=== PATIENT | male | born 1950 | race Caucasian/White ===

== ENCOUNTER 2018-12-07 12:44 | Observation (INO) | payer MEDICARE, OTHER, SELFPAY ==
[2018-12-07] VITALS (9 sets, daily range): BP systolic 120–150; BP diastolic 81–103; PULSE 66–87; RESP 12–17; TEMP 36.7–37.1; O2SAT 92–97; BMI 30.8
--- NOTE | 2018-12-07 | DI.ECHO.S_ITS ---
[facility]---------+ [facility] +---------+ : : [address] : : : : [id number] : : : : Phone: [phone]+ Echocardiogram Report + + :Name: CARINA ESQUIVEL Study Date: 12/08/2018 Height: 67 in : :[facility] Weight: 197 lb : : Gender: Male BSA: 2.0 m2 : :: 1950 Age: 68 yrs BP: 149/91 mmHg: :Reason For Study: CVA : :Ordering Physician: Fely : :Hospitalist Performed By: Brittany Hernandez : :Referring: Peterson LARES E : + + Interpretation Summary The left ventricle is grossly normal size. Left ventricular systolic function is normal. The ejection fraction is estimated to be 60-65%. There are no obvious focal wall motion abnormalities noted but poor endocardial definition reduces the sensitivity for the detection of such. Diastolic parameters suggest a relaxation abnormality of the left ventricle, consistent with probable normal filling pressures. The right ventricle grossly appears normal in size with probable normal systolic function. Pulmonary artery pressures cannot be estimated because of the lack of a measurable TR jet velocity. Both atria are normal in size. There is mild aortic regurgitation. There is no other significant valvular heart disease. The aortic root is borderline dilated. The ascending aorta is mildly enlarged. No obvious source for CVA. Procedure: A two-dimensional transthoracic echocardiogram with color flow and Doppler was performed. The study quality was technically adequate. The patient had an echocardiogram, but there is no comparison study available. The patient reports prior echocardiogram's were performed at the [facility]. 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 The parasternal images were difficult to obtain and suboptimal in quality due to patient body habitus and pectus excavatum. The patient was in normal sinus rhythm during the exam. Left Ventricle: The left ventricle is grossly normal size. Left ventricular systolic function is normal. The ejection fraction is estimated to be 60-65%. There are no obvious focal wall motion abnormalities noted but poor endocardial definition reduces the sensitivity for the detection of such. Diastolic parameters suggest a relaxation abnormality of the left ventricle, consistent with probable normal filling pressures. Right Ventricle: The right ventricle grossly appears normal in size with probable normal systolic function. Atria: Both atria are normal in size. Mitral Valve: The mitral valve is normal in structure and function. There is trace mitral regurgitation. Aortic Valve: The aortic valve is trileaflet. The aortic valve opens well. There is mild aortic regurgitation. Tricuspid Valve: The tricuspid valve is normal in structure and function. There is a trace or physiologic amount of tricuspid regurgitation. Pulmonary artery pressures cannot be estimated because of the lack of a measurable TR jet velocity. Pulmonic Valve: The pulmonic valve is not well visualized. There is a trace or physiologic amount of pulmonic regurgitation. There is no other significant valvular heart disease. Great Vessels: The aortic root is borderline dilated. The ascending aorta is mildly enlarged. The aortic arch is at the upper limits of normal in size. The IVC is of normal diameter and collapses greater than 50% with a sniff. This suggests a low right atrial pressure of 3 mm Hg. Pericardium/ Pleura There is no pericardial effusion. There is an anterior echo-free space consistent with a fat pad. There is no pleural effusion. MMode/2D Measurements & Calculations LVOT diam: 2.2 cm LA A2 area: 16.7 cm2 Ao root diam: 4.1 cm LA A4 area: 18.5 cm2 asc Aorta Diam: 3.9 cm LA length (vol): 4.9 cm Ao Arch Diam (Prox Trans): 3.2 cm LA vol: 53.5 ml LA vol index: 26.6 ml/m2 RA long axis: 4.8 cm TAPSE: 2.3 cm RA area: 17.5 cm2 RA vol: 54.0 ml RA : 26.9 ml/m2 Doppler Measurements & Calculations Ao V2 max: 100.7 cm/sec LVOT Max Jose: 73.1 cm/sec Ao V2 mean: 70.4 cm/sec LV V1 max P.1 mmHg Ao max P.1 mmHg LV V1 VTI: 14.8 cm Ao mean P.2 mmHg JOSE(I,D): 3.1 cm2 Ao V2 VTI: 18.7 cm JOSE(V,D): 2.8 cm2 sev ratio: 0.79 JOSE indexed to BSA (cm^2/m^2): 1.5 MV E max jose: 33.4 cm/sec PA V2 max: 62.5 cm/sec MV A max jose: 64.1 cm/sec PA V2 mean: 41.7 cm/sec MV E/A: 0.52 PA mean P.78 mmHg Med Peak E' Jose: 7.8 cm/sec PA pr(Accel): 17.4 mmHg E/E' med: 4.3 Lat Peak E' Jose: 15.8 cm/sec E/E' lat: 2.1 E/e' average: 3.2 MV dec time: 0.26 sec SV(LVOT): 57.6 ml Reading Physician:02:32 PM
--- NOTE | 2018-12-07 13:01 | DI.CT.S_ITS ---
PROCEDURE: CT HEAD/BRAIN WO CON INDICATIONS: on and off right facial droop, slurred speech, word searchin TECHNIQUE: Noncontrast 4.5 mm thick angled axial sections acquired from the foramen magnum to the vertex, with coronal and sagittal reformats. For radiation dose reduction, the following was used: automated exposure control, adjustment of mA and/or kV according to patient size. COMPARISON: None. FINDINGS: Image quality: Excellent. CSF spaces: Basal cisterns are patent. No extra-axial fluid collections. The ventricles are symmetric in size and shape. Brain: No intracranial bleeds or masses. There is moderate cerebral volume loss for age, with resultant ventricular and sulcal prominence. There are moderate periventricular and deep white matter chronic small vessel ischemic changes. A hyperdense focus is present within the right lentiform nucleus (series 2, image 14). There is intracranial internal carotid artery atherosclerosis. Skull and face: Calvarium and visualized facial bones appear intact, without suspicious lesions. Sinuses: Visualized sinuses and mastoids are clear. IMPRESSION: 1. Hypodense focus within the right lentiform nucleus which may be associated with late subacute or early chronic infarct. This finding was discussed with Dr. Greer at 1:31 PM on 12/07/18. 2. No other acute intracranial findings. 3. Findings likely associated with chronic microvascular ischemic changes. Dictated by: Kate Dyer M.D. on 12/07/2018 at 13:27 Approved by: Kate Dyer M.D. on 12/07/2018 at 13:31
--- NOTE | 2018-12-07 13:01 | DI.RAD.S_ITS ---
PROCEDURE: XR CHEST 1V INDICATIONS: chest pain TECHNIQUE: One view of the chest was acquired. COMPARISON: None. FINDINGS: Surgical changes and devices: None. Lungs and pleura: Lungs are clear. No pleural effusions or pneumothorax. Mediastinum: Mediastinal contours appear normal. Heart size is normal. Bones and chest wall: No suspicious bony lesions. Overlying soft tissues appear unremarkable. IMPRESSION: No acute cardiopulmonary findings. Dictated by: Kate Dyer M.D. on 12/07/2018 at 13:31 Approved by: Kate Dyer M.D. on 12/07/2018 at 13:32
--- NOTE | 2018-12-07 13:06 | ED.NEUROSD ---
HPI - Neuro Symptoms/Deficit General Chief Complaint: Neuro Symptoms/Deficit Stated Complaint: SLURRED SPEECH Time Seen by Provider: 12/07/18 13:03 Source: patient Mode of arrival: ambulatory Limitations: no limitations History of Present Illness HPI Narrative: The patient had onset of an episode today at 11:30 or he demonstrated right facial droop and dysarthria. His thinks his speech has been hot all day. He had an episode 2 days ago where he briefly had slurred speech. His symptoms have resolved. He has no confusion, slurred speech, weakness or numbness. He has no prior history of CVA or TIA. He has no cardiac history. He is anticoagulated with Coumadin. He has prior history of right DVT, and had a PE 2 years ago after a trip to [place]. He is on medications for hypertension. He has no diabetes, he is a nonsmoker. He denies recent illness. He has had no fever, chills or cough. He denies chest pain or palpitations. On Anticoagulants: Yes (coumadin) Related Data Home Medications Medication Instructions Recorded Confirmed losartan See Rx Instructions .ROUTE .COMPLEX 12/07/18 12/07/18 warfarin See Rx Instructions .ROUTE .COMPLEX 12/07/18 12/07/18 Allergies Allergy/AdvReac Type Severity Reaction Status Date / Time doxycycline Allergy Intermediate Photosensit Verified 12/07/18 12:51 ivity Review of Systems Constitutional Denies chills, Denies fever(s), Denies lethargy and Denies weakness Eyes Denies change in vision and Denies loss of vision ENT Ears, Nose, Mouth, and Throat: Denies change in voice, Denies vertigo, Denies dizziness, Denies neck pain, Denies sore throat and Reports other (No difficulty swallowing) Cardiovascular Denies chest pain, Denies irregular heart rhythm, Denies lightheadedness, Denies palpitations, Denies dyspnea and Denies orthopnea Respiratory Denies cough, Denies dyspnea and Denies wheezing Gastrointestinal Gastrointestinal: Denies abdominal pain, Denies change in bowel habits, Denies diarrhea, Denies nausea and Denies vomiting Musculoskeletal Denies back pain and Denies neck pain Integumentary/Breasts Denies rash Neurologic Denies confusion, Denies vertigo, Denies dizziness, Denies loss of vision and Denies weakness Psychiatric Denies anxiety and Denies confusion Endocrine Denies palpitations Hematologic/Lymphatic Reports easy bleeding Allergic/Immunologic Denies wheezing PFSH Medical History DVT (deep venous thrombosis) (Acute) Channing-Danlos syndrome (Acute) Hypertension (Acute) Pulmonary embolism (Acute) Surgical History No pertinent past surgical history (Acute) Social History Smoking Status: Never smoker Social History Smoking Status: Never smoker Exam Initial Vital Signs Initial Vital Signs: Vital Signs Temperature 98.7 F 12/07/18 12:48 Pulse Rate 87 12/07/18 12:48 Respiratory Rate 14 12/07/18 12:48 Blood Pressure 146/103 H 12/07/18 12:48 Pulse Oximetry 96 12/07/18 12:48 Const General: cooperative and well developed Nutritional Appearance: well nourished Orientation: alert, awake, oriented x3 and not confused HENMT Mouth: oral mucosae normal Throat: posterior oropharynx normal, tonsils normal and uvula midline Eyes General: appearance normal, both eyes and all related structures Eyelids: eyelids normal Conjunctivae: conjunctivae normal Sclera: sclerae normal Pupils: PERRL EOM: EOM intact bilaterally Neck Neck: normal visual inspection, trachea midline, No lymphadenopathy, No midline deformity and No JVD Thyroid: nontender Lymphatic: No lymphedema Chest Chest: normal inspection of the chest Resp Effort & Inspection: normal respiratory effort and able to speak in complete sentences Auscultation: clear to auscultation bilaterally, no rales, no rhonchi and no wheezes Cardio Rate: regular rate Rhythm: regular rhythm Heart Sounds: no click, no gallops, no murmurs and no rubs Pulses: normal peripheral pulses GI Inspection: non-distended Palpation: soft, no hepatosplenomegaly, No guarding, No pulsatile mass and No tender Auscultation: normal bowel sounds Back/Spine/Pelvis Back: No CVA tenderness Cervical Spine: cervical ROM normal Thoracic/Lumbar Spine: thoracic and lumbar spine normal to inspection Skin General: no rashes or lesions noted and No petechiae Neuro General: alert, oriented x3, gait normal and no focal motor deficits Speech: speech normal Motor: muscle tone normal throughout Sensory Exam: no sensory deficits noted Scores NIH Stroke Scale Level of Conciousness: Alert, keenly responsive Ask month/age: Answers both questions correctly. Open/close eyes, close hand: Performs both tasks correctly Best gaze horizontal: Normal Visual rebollar: No visual loss Facial palsy: Normal symetrical movement Left arm drift: No drift for full 10 sec Right arm drift: No drift for full 10 sec Left leg drift: No drift for full 10 sec Right leg drift: No drift for full 10 sec Limb ataxia: Absent Sensory on face/arms/legs: Normal, no sensory loss Best language: No aphasia, normal Dysarthria: Normal Extinction or inattention: No abnormality Total NIH Stroke scale score: 0 Course Orders Ordered: ED Orders 12/07/18 13:01 CT head/brain wo con Stat XR chest 1V Stat Partial Thromboplastin Time Stat Prothrombin Time INR Stat EKG-12 Lead Stat 12/07/18 13:35 MR stroke Stat 12/07/18 17:02 Education, smoking cessation ONGOING Losartan Potassium (Cozaar) 100 mg PO DAILY [facility] Warfarin Sodium (Coumadin) 2.5 mg PO TuThSa@1700 [facility] Vital Signs - 8 hr 12/07/18 12:48 12/07/18 14:14 12/07/18 16:19 Temperature 98.7 F Pulse Rate 87 70 70 Respiratory Rate 14 17 12 Blood Pressure 146/103 H Blood Pressure [Right Arm] 150/85 H 132/94 H Pulse Oximetry 96 92 93 MDM - Neuro Symptoms/Deficit Lab Data Result diagrams: 12/07/18 Unknown 12/07/18 Unknown Lab Results 12/07/18 12/07/18 12/07/18 Range/Units 13:01 Unknown Unknown WBC 5.3 (4.5-11.0) X10^3/uL RBC 5.14 (4.5-5.9) X10^6/uL Hgb 16.0 (13.5-17.5) g/dL Hct 46.9 (41-53) % MCV 91.3 (80-100) fL MCH 31.2 (26-34) PG MCHC 34.2 (30-36) % RDW 14.2 (11.6-14.8) % Plt Count 194 (150-400) X10^3/uL Neut % (Auto) 53.7 (50-75) % Lymph % (Auto) 29.3 (25-40) % [place] % (Auto) 11.7 (3-14) % Eos % (Auto) 4.6 H (2-4) % Baso % (Auto) 0.7 (0-2) % Neut # (Auto) 2800 (4058-9237) /uL Lymph # (Auto) 1600 (4078-5596) /uL [place] # (Auto) 600 (0-900) /uL Eos # (Auto) 200 (0-450) /uL Baso # (Auto) 0 (0-100) /uL PT 28.7 H (10.1-12.7) SECONDS INR 2.5 H (0.9-1.3) APTT 45 H (26.4-36.2) SECONDS Sodium 138 (137-145) mmol/L Potassium 4.8 (3.4-5.1) mmol/L Chloride 104 (98-107) mmol/L Carbon Dioxide 23 (22-32) mmol/L BUN 23 H (9-20) mg/dL Creatinine 0.80 (0.66-1.25) mg/dL Estimated GFR > 60.0 (>60) mL/min BUN/Creatinine Ratio 28.8 H (6-22) Glucose 101 (80-110) mg/dL Calcium 9.1 (8.4-10.2) mg/dL Total Bilirubin 0.8 (0.2-1.3) mg/dL AST 40 (17-59) IU/L ALT 37 (21-72) IU/L Alkaline Phosphatase 56 (38-126) U/L Total Creatine Kinase 101 (55-170) U/L CK-MB (CK-2) 1.69 (<2.37) ng/mL CK-MB (CK-2) Rel Index 1.7 (1.5-5.0) % Troponin I < 0.012 (0.01-0.034) ng/mL Total Protein 8.1 (6.3-8.2) g/dL Albumin 4.4 (3.5-5.0) g/dL Globulin 3.7 (1.7-4.1) g/dL Albumin/Globulin Ratio 1.2 (1.0-2.8) Lipase 53 (23-300) U/L Imaging Data CT scan - head: Radiologist's impression: [address] [address] [address] Scan Report Signed Patient: CARINA SULLIVAN [facility]#: [id number] : 8Acct:[id number] Age/Sex: 68 / MDate of Service: 12/07/18 Loc: ED Accession Number: [id number] Procedure: CT head/brain wo con Ordering Provider: Faye Neely P.A-C PROCEDURE: CT HEAD/BRAIN WO CON INDICATIONS: on and off right facial droop, slurred speech, word searchin TECHNIQUE: Noncontrast 4.5 mm thick angled axial sections acquired from the foramen magnum to the vertex, with coronal and sagittal reformats. For radiation dose reduction, the following was used: automated exposure control, adjustment of mA and/or kV according to patient size. COMPARISON: None. FINDINGS: Image quality: Excellent. CSF spaces: Basal cisterns are patent. No extra-axial fluid collections. The ventricles are symmetric in size and shape. Brain: No intracranial bleeds or masses. There is moderate cerebral volume loss for age, with resultant ventricular and sulcal prominence. There are moderate periventricular and deep white matter chronic small vessel ischemic changes. A hyperdense focus is present within the right lentiform nucleus (series 2, image 14). There is intracranial internal carotid artery atherosclerosis. Skull and face: Calvarium and visualized facial bones appear intact, without suspicious lesions. Sinuses: Visualized sinuses and mastoids are clear. IMPRESSION: 1. Hypodense focus within the right lentiform nucleus which may be associated with late subacute or early chronic infarct. This finding was discussed with Dr. Greer at 1:31 PM on 12/07/18. 2. No other acute intracranial findings. 3. Findings likely associated with chronic microvascular ischemic changes. Dictated by: Kate Dyer M.D. on 12/07/2018 at 13:27 Approved by: Kate Dyer M.D. on 12/07/2018 at 13:31 Chest x-ray: Radiologist's impression: [address] [address] XRay Report Signed Patient: CARINA SULLIVAN [facility]#: [id number] : 8Acct:[id number] Age/Sex: 68 / MDate of Service: 12/07/18 Loc: ED Accession Number: [id number] Procedure: XR chest 1V Ordering Provider: Humberto Greer M.D. PROCEDURE: XR CHEST 1V INDICATIONS: chest pain TECHNIQUE: One view of the chest was acquired. COMPARISON: None. FINDINGS: Surgical changes and devices: None. Lungs and pleura: Lungs are clear. No pleural effusions or pneumothorax. Mediastinum: Mediastinal contours appear normal. Heart size is normal. Bones and chest wall: No suspicious bony lesions. Overlying soft tissues appear unremarkable. IMPRESSION: No acute cardiopulmonary findings. Dictated by: Kate Dyer M.D. on 12/07/2018 at 13:31 Approved by: Kate Dyer M.D. on 12/07/2018 at 13:32 MRI - head: Radiologist's impression: [place] [address] Magnetic Resonance Report Signed Patient: Carina Sullivan [facility]#: [id number] : 8Acct:[id number] Age/Sex: 68 / MDate of Service: 12/07/18 Loc: ED Accession Number: [id number] Procedure: MR stroke Ordering Provider: Humberto Greer M.D. PROCEDURE: MR STROKE Pre- and post-contrast brain MRI, non-contrast brain MR angiogram, pre- and postcontrast neck MR angiogram INDICATIONS: TIA. TECHNIQUE: Brain: Noncontrast axial T1 spin echo, axial T2 fast spin echo, sagittal and axial FLAIR, coronal T2 fast spin echo, axial gradient echo, axial diffusion and ADC through the brain. After the administration of contrast, axial 3D VIBE of the cranial vasculature and brain. Brain MRA: Non-contrast 3-D time of flight MR angiogram, with multiple vvecvpz-gbnhyywew-kwoaagckjd (MIP) reformats performed. Neck MRA: Axial and sagittal TruFISP through the neck. Coronal dynamic MR angiogram during administration of contrast in the arterial and venous phases, with 3-dimenstional scsdvlw-xnzuqhsbl-kbhyzvaoan (MIP) reformats constructed from subtraction images. COMPARISON: None. FINDINGS: Image quality: Excellent. BRAIN: CSF spaces: Ventricles are normal in size and shape. Basal cisterns are patent. No extra-axial fluid collections. Brain: No intracranial bleeds or mass effects. Fonseca-white matter interface is normal. Diffusion weighted images show no acute ischemic insults. T2 hyperintense focus is present within the posterior right lentiform nucleus which likely corresponds with the hypodense region on the comparison CT from earlier today this region may represent an early chronic infarct. Brainstem appears normal. Normal intravascular flow voids are present. No abnormal intracranial enhancement. Skull and face: Calvarial marrow signal is normal. Orbits appear normal. Sinuses: Sinuses and mastoids are clear. BRAIN MR ANGIOGRAM: Anterior circulation: Mild bilateral stenosis is present within the cavernous portions of the bilateral internal carotid arteries. Intracranial internal carotid arteries are otherwise normal in size and enhancement. The flow within the paired anterior cerebral arteries is normal and symmetric. The flow within the middle cerebral arteries is normal and symmetric. The anterior communicating artery is seen. No stenoses, occlusions, or aneurysms. Posterior circulation: The visualized portions of the vertebral arteries demonstrate normal caliber, and join to form a normal appearing basilar artery. The flow within the posterior cerebral arteries is normal and symmetric. No stenoses, occlusions, or aneurysms. NECK MR ANGIOGRAM: Carotids: Great vessels demonstrate a conventional anatomy as they arise from the aortic arch. The origins of the common carotid arteries are poorly characterized. The calibers and courses of both common carotid arteries are normal. The bifurcation regions appear normal bilaterally. The internal carotid arteries demonstrate normal course and caliber. Posterior circulation: The origins of the vertebral arteries are poorly characterized. More superior portions of both vertebral arteries demonstrate normal course and caliber, and join to form a normal appearing basilar artery. Miscellaneous: Subclavian arteries appear patent. Pre-contrast images through the neck show no soft tissue abnormalities. IMPRESSION: BRAIN MRI: 1. No acute intracranial findings. Specifically, no increased restricted diffusion to suggest acute or subacute infarct. 2. Probable early chronic infarct within the right basal ganglia as above. 3. Mild findings likely associated with chronic microvascular ischemic change. BRAIN MR ANGIOGRAM: 1. Mild stenosis of the cavernous portions of the bilateral internal carotid arteries. No other stenosis, occlusion, or aneurysm. NECK MR ANGIOGRAM: 1. Poor characterization of the origin of the carotid arteries and vertebral arteries. No other findings to suggest stenosis, occlusion, or aneurysm of the carotid or vertebral arteries. Dictated by: Kate Dyer M.D. on 12/07/2018 at 15:54 Approved by: Kate Dyer M.D. on 12/07/2018 at 16:07 ECG Data Attestation: I personally reviewed and interpreted this ECG as follows: (Normal sinus rhythm rate 75 bpm. RBBB. LAFB. Anterior Q-waves. No acute ST T wave changes. No ectopy.) [facility] Narrative Medical decision making narrative: The patient was asymptomatic upon arrival, but presented with concerns suggesting TIA versus CVA. He is anticoagulated due to a PE. He has no history of CAD or arrhythmia. He is in normal sinus rhythm. Vitals stable are normal and he is alert orient. The initial head CT was suggestive of a CVA. An MRI was arranged. The MRI reveals areas of atherosclerosis, and again, evidence of a CVA but of undetermined age. The patient has been asymptomatic since I first examined him. He is normotensive, and is in normal sinus rhythm without ectopy or arrhythmia. I have discussed his presentation with the hospitalist, Dr. Sotelo. He will be admitted to Dr. Sotelo. Discharge Plan Departure Patient Disposition: Admitted as Observation Clinical Impression: Cerebrovascular accident Qualifiers: CVA mechanism: unspecified Qualified Code(s): I63.9 - Cerebral infarction, unspecified
[2018-12-07 13:14] LABS: Add Manual Diff / Slide Review NO; Basophils Absolute Auto 0 /uL (0-100); Basophils Percent Auto 0.7 % (0-2); Eosinophils Absolute Auto 200 /uL (0-450); Eosinophils Percent Auto 4.6 % (2-4); Hematocrit 46.9 % (41-53); Lymphocytes Absolute Auto 1600 /uL (1100-4500); Lymphocytes Percent Auto 29.3 % (25-40); Mean Corpuscular HGB Conc 34.2 % (30-36); Mean Corpuscular Hemoglobin 31.2 PG (26-34); Mean Corpuscular Volume 91.3 fL (80-100); Monocytes Absolute Auto 600 /uL (0-900); Monocytes Percent Auto 11.7 % (3-14); Neutrophils Absolute Auto 2800 /uL (1500-7000); Neutrophils Percent Auto 53.7 % (50-75); Platelet Count 194 X10^3/uL (150-400); Red Blood Cell Count 5.14 X10^6/uL (4.5-5.9); Red Cell Distribution Width 14.2 % (11.6-14.8); White Blood Cell Count 5.3 X10^3/uL (4.5-11.0)
[2018-12-07 13:27] LABS: Alanine Aminotransferase 37 IU/L (21-72); Albumin 4.4 g/dL (3.5-5.0); Albumin Globulin Ratio 1.2 (1.0-2.8); Alkaline Phosphatase 56 U/L (38-126); Aspartate Aminotransferase 40 IU/L (17-59); BUN Creatinine Ratio 28.8 (6-22); Bilirubin Total 0.8 mg/dL (0.2-1.3); Blood Urea Nitrogen 23 mg/dL (9-20); Calcium 9.1 mg/dL (8.4-10.2); Carbon Dioxide 23 mmol/L (22-32); Chloride 104 mmol/L (98-107); Creatine Kinase 101 U/L (55-170); Estimated Glomerular Filt Rate > 60.0 mL/min (>60); Globulin 3.7 g/dL (1.7-4.1); Glucose 101 mg/dL (80-110); Lipase 53 U/L (23-300); Potassium 4.8 mmol/L (3.4-5.1); Sodium 138 mmol/L (137-145); Total Protein 8.1 g/dL (6.3-8.2)
--- NOTE | 2018-12-07 13:35 | DI.MRI.S_ITS ---
PROCEDURE: MR STROKE Pre- and post-contrast brain MRI, non-contrast brain MR angiogram, pre- and postcontrast neck MR angiogram INDICATIONS: TIA. TECHNIQUE: Brain: Noncontrast axial T1 spin echo, axial T2 fast spin echo, sagittal and axial FLAIR, coronal T2 fast spin echo, axial gradient echo, axial diffusion and ADC through the brain. After the administration of contrast, axial 3D VIBE of the cranial vasculature and brain. Brain MRA: Non-contrast 3-D time of flight MR angiogram, with multiple ekpbpwm-gttrmssnp-wsjofshodd (MIP) reformats performed. Neck MRA: Axial and sagittal TruFISP through the neck. Coronal dynamic MR angiogram during administration of contrast in the arterial and venous phases, with 3-dimenstional twbalmf-siobstzla-guqpyfjzlb (MIP) reformats constructed from subtraction images. COMPARISON: None. FINDINGS: Image quality: Excellent. BRAIN: CSF spaces: Ventricles are normal in size and shape. Basal cisterns are patent. No extra-axial fluid collections. Brain: No intracranial bleeds or mass effects. Fonseca-white matter interface is normal. Diffusion weighted images show no acute ischemic insults. T2 hyperintense focus is present within the posterior right lentiform nucleus which likely corresponds with the hypodense region on the comparison CT from earlier today this region may represent an early chronic infarct. Brainstem appears normal. Normal intravascular flow voids are present. No abnormal intracranial enhancement. Skull and face: Calvarial marrow signal is normal. Orbits appear normal. Sinuses: Sinuses and mastoids are clear. BRAIN MR ANGIOGRAM: Anterior circulation: Mild bilateral stenosis is present within the cavernous portions of the bilateral internal carotid arteries. Intracranial internal carotid arteries are otherwise normal in size and enhancement. The flow within the paired anterior cerebral arteries is normal and symmetric. The flow within the middle cerebral arteries is normal and symmetric. The anterior communicating artery is seen. No stenoses, occlusions, or aneurysms. Posterior circulation: The visualized portions of the vertebral arteries demonstrate normal caliber, and join to form a normal appearing basilar artery. The flow within the posterior cerebral arteries is normal and symmetric. No stenoses, occlusions, or aneurysms. NECK MR ANGIOGRAM: Carotids: Great vessels demonstrate a conventional anatomy as they arise from the aortic arch. The origins of the common carotid arteries are poorly characterized. The calibers and courses of both common carotid arteries are normal. The bifurcation regions appear normal bilaterally. The internal carotid arteries demonstrate normal course and caliber. Posterior circulation: The origins of the vertebral arteries are poorly characterized. More superior portions of both vertebral arteries demonstrate normal course and caliber, and join to form a normal appearing basilar artery. Miscellaneous: Subclavian arteries appear patent. Pre-contrast images through the neck show no soft tissue abnormalities. IMPRESSION: BRAIN MRI: 1. No acute intracranial findings. Specifically, no increased restricted diffusion to suggest acute or subacute infarct. 2. Probable early chronic infarct within the right basal ganglia as above. 3. Mild findings likely associated with chronic microvascular ischemic change. BRAIN MR ANGIOGRAM: 1. Mild stenosis of the cavernous portions of the bilateral internal carotid arteries. No other stenosis, occlusion, or aneurysm. NECK MR ANGIOGRAM: 1. Poor characterization of the origin of the carotid arteries and vertebral arteries. No other findings to suggest stenosis, occlusion, or aneurysm of the carotid or vertebral arteries. Dictated by: Kate Dyer M.D. on 12/07/2018 at 15:54 Approved by: Kate Dyer M.D. on 12/07/2018 at 16:07
[2018-12-07 13:38] LABS: Troponin I < 0.012 ng/mL (0.01-0.034)
[2018-12-07 13:42] LABS: CKMB % Relative Index 1.7 % (1.5-5.0); Creatine Kinase MB 1.69 ng/mL (<2.37)
[2018-12-07 13:46] LABS: HEMOLYSIS 81 (0-50)
--- NOTE | 2018-12-07 14:49 | PC.NURSE ---
taken to MRI
[2018-12-07 16:22] LABS: INR 2.5 (0.9-1.3); Prothrombin Time 28.7 SECONDS (10.1-12.7)
[2018-12-07 16:23] LABS: PTT Partial Thromboplastin Tim 45 SECONDS (26.4-36.2)
--- NOTE | 2018-12-07 17:06 | PM.HP.1 ---
History of Present Illness Date Patient Seen: 12/07/18 Time Patient Seen: 17:41 Chief complaint: SLURRED SPEECH Narrative: This is a 68-year-old male presenting with a stuttering onset of facial drooping and dysarthria. For the last couple of days he has experienced the symptoms. They became more intense over the previous 2 hr and so his insisted on him coming to the emergency department. When he arrived the symptoms had completely resolved and have not returned. He described a right-sided facial droop and difficulty talking both of which were mild. The 1st occurred 2 days ago. He has never had a stroke before but he does have a history of hypertension. There is no family history of stroke. 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 He appears to have a right basal ganglia infarct. He is quite irritated to have to stay in the hospital for ongoing telemetry and echocardiogram checks but his is able to persuade him. There is no history of diabetes or coronary artery disease. He does not take cholesterol lowering medicine. 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 Dr. Geronimo is his PCP Dr. John at is his rug drying machine operator Dr. Molina at [place] is his Vascular specialist Safety & Behavioral: Feels Safe in Current Yes Environment Been Physically Hurt or No Threatened By a Person Tobacco & Substance use: Smoking Status Never smoker alcohol intake frequency 0-2 drinks per day Substance Use Type does not use Meds Home Medications Medication Instructions Recorded Confirmed Type losartan See Rx Instructions .ROUTE .COMPLEX 12/07/18 12/07/18 History warfarin See Rx Instructions .ROUTE .COMPLEX 12/07/18 12/07/18 History Allergies Allergy/AdvReac Type Severity Reaction Status Date / Time doxycycline Allergy Intermediate Photosensit Verified 12/07/18 12:51 ivity Review of Systems Review of Systems Positive for mild dysarthria and facial drooping beginning 2 days ago. Negative for chest pain, nausea, vomiting, coughing, fevers, chills, sweats, seizures, headaches, bleeding, abdominal pain, rashes, joint pain, dysuria, trouble walking, new allergies. All systems reviewed & are unremarkable except as noted in HPI and below Exam Vital Signs (past 8 hours): - 12/07/18 12:48 12/07/18 14:14 12/07/18 16:19 Temperature 98.7 F Pulse Rate 87 70 70 Respiratory Rate 14 17 12 Blood Pressure 146/103 H Blood Pressure [Right Arm] 150/85 H 132/94 H Pulse Oximetry 96 92 93 Oxygen Delivery Method Room Air Narrative Exam Narrative: He is alert and oriented x3. He is in mild distress, disturbed by not being able to go home and resume his usual activities. He finds the hospital boring. There are no acute neurological abnormalities at this time. Pupils are equally round and reactive to light and accommodation. Extraocular muscles are intact. Sclerae are pink and not icteric. Throat looks normal. There is a healing bite francia on the right anterior tongue. No lymph nodes are felt head, neck, supraclavicular area. There is no thyromegaly. JVD is less than 6 cm. No carotid bruits are heard. Heart is regular rate and rhythm without murmur. Lungs are clear to auscultation bilaterally. Abdomen is soft, bowel sounds are positive, nontender, no organomegaly. Extremities have no ankle edema. Skin has no rash or jaundice. Neuro exam. Cranial nerves 2-12 tested intact. Motor function is 5/5 throughout. There is no tremor. DTRs are normal. Sensation is intact. Finger-nos pointing is normal. There is no facial droop or tongue deviation. His speech is clear. There is no lateralizing deficit. Objective Labs Result Diagrams: 12/07/18 Unknown 12/07/18 Unknown Labs: Laboratory Results - last 24 hr 12/07/18 12/07/18 12/07/18 13:01 Unknown Unknown WBC 5.3 RBC 5.14 Hgb 16.0 Hct 46.9 MCV 91.3 MCH 31.2 MCHC 34.2 RDW 14.2 Plt Count 194 Neut % (Auto) 53.7 Lymph % (Auto) 29.3 Garza % (Auto) 11.7 Eos % (Auto) 4.6 H Baso % (Auto) 0.7 Neut # (Auto) 2800 Lymph # (Auto) 1600 Garza # (Auto) 600 Eos # (Auto) 200 Baso # (Auto) 0 PT 28.7 H INR 2.5 H APTT 45 H Sodium 138 Potassium 4.8 Chloride 104 Carbon Dioxide 23 BUN 23 H Creatinine 0.80 Estimated GFR > 60.0 BUN/Creatinine Ratio 28.8 H Glucose 101 Calcium 9.1 Total Bilirubin 0.8 AST 40 ALT 37 Alkaline Phosphatase 56 Total Creatine Kinase 101 CK-MB (CK-2) 1.69 CK-MB (CK-2) Rel Index 1.7 Troponin I < 0.012 Total Protein 8.1 Albumin 4.4 Globulin 3.7 Albumin/Globulin Ratio 1.2 Lipase 53 Assessment & Plan Assessment & Plan narrative: 1 - acute right basal ganglia CVA -Echocardiogram and Telemetry ordered -Lipids ordered -MRI shows this acute CVA -Consider adding Aspirin/Plavix to his Coumadin therapy -consider PT/OT/ST if symptoms change 2 - hypertension -Continue Losartan -add Beta al if indicated. 3 - history of pulmonary embolus -Continue Coumadin -INR 2.5 today 4 - Channing Danlos -Echocardiogram ordered.
--- NOTE | 2018-12-07 17:13 | P.HP_ITS ---
History of Present Illness Date Patient Seen: 12/07/18 Time Patient Seen: 17:41 Chief complaint: SLURRED SPEECH Narrative: This is a 68-year-old male presenting with a stuttering onset of fac ial drooping and dysarthria. For the last couple of days he has experienced the symptoms. They became more intense over the previous 2 hr and so his insisted on him coming to the emergency department. When he arrived the symptoms had completely resolved and have not returned. He described a right- sided facial droop and difficulty talking both of which were mild. The 1st occurred 2 days ago. He has never had a stroke before but he does have a history of hypertension. There is no family history of stroke. 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 He appears to have a right basal ganglia infarct. He is quite irritated to have to stay in the hospital for ongoing telemetry and echocardiogram checks but his is able to persuade him. There is no history of diabetes or coronary artery disease. He does not take cholesterol lowering medicine. 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 Dr. Geronimo is his PCP Dr. John at is his extruding press operator Dr. Molina at [place] is his Vascular specialist Safety & Behavioral: Feels Safe in Current Yes Environment Been Physically Hurt or No Threatened By a Person Tobacco & Substance use: Smoking Status Never smoker alcohol intake frequency 0-2 drinks per day Substance Use Type does not use Meds Home Medications Medication Instructions Recorded Confirmed Type losartan See Rx Instructions .ROUTE .COMPLEX 12/07/18 12/07/18 History warfarin See Rx Instructions .ROUTE .COMPLEX 12/07/18 12/07/18 History Allergies Allergy/AdvReac Type Severity Reaction Status Date / Time doxycycline Allergy Intermediate Photosensit Verified 12/07/18 12:51 ivity Review of Systems Review of Systems Positive for mild dysarthria and facial drooping beginning 2 days ago. Negative for chest pain, nausea, vomiting, coughing, fevers, chills, sweats, seizures, headaches, bleeding, abdominal pain, rashes, joint pain, dysuria, trouble walking, new allergies. All systems reviewed & are unremarkable except as noted in HPI and below Exam Vital Signs (past 8 hours): - 12/07/18 12:48 12/07/18 14:14 12/07/18 16:19 Temperature 98.7 F Pulse Rate 87 70 70 Respiratory Rate 14 17 12 Blood Pressure 146/103 H Blood Pressure [Right Arm] 150/85 H 132/94 H Pulse Oximetry 96 92 93 Oxygen Delivery Method Room Air Narrative Exam Narrative: He is alert and oriented x3. He is in mild distress, disturbed by not being able to go home and resume his usual activities. He finds the hospital boring. There are no acute neurological abnormalities at this time. Pupils are equally round and reactive to light and accommodation. Extraocular muscles are intact. Sclerae are pink and not icteric. Throat looks normal. There is a healing bite francia on the right anterior tongue. No lymph nodes are felt head, neck, supraclavicular area. There is no thyromegaly. JVD is less than 6 cm. No carotid bruits are heard. Heart is regular rate and rhythm without murmur. Lungs are clear to auscultation bilaterally. Abdomen is soft, bowel sounds are positive, nontender, no organomegaly. Extremities have no ankle edema. Skin has no rash or jaundice. Neuro exam. Cranial nerves 2-12 tested intact. Motor function is 5/5 throughout. There is no tremor. DTRs are normal. Sensat ion is intact. Finger-nos pointing is normal. There is no facial droop or tongue deviation. His speech is clear. There is no lateralizing deficit. Objective Labs Result Diagrams: 12/07/18 Unknown 12/07/18 Unknown Labs: Laboratory Results - last 24 hr 12/07/18 12/07/18 12/07/18 13:01 Unknown Unknown WBC 5.3 RBC 5.14 Hgb 16.0 Hct 46.9 MCV 91.3 MCH 31.2 MCHC 34.2 RDW 14.2 Plt Count 194 Neut % (Auto) 53.7 Lymph % (Auto) 29.3 [place] % (Auto) 11.7 Eos % (Auto) 4.6 H Baso % (Auto) 0.7 Neut # (Auto) 2800 Lymph # (Auto) 1600 [place] # (Auto) 600 Eos # (Auto) 200 Baso # (Auto) 0 PT 28.7 H INR 2.5 H APTT 45 H Sodium 138 Potassium 4.8 Chloride 104 Carbon Dioxide 23 BUN 23 H Creatinine 0.80 Estimated GFR > 60.0 BUN/Creatinine Ratio 28.8 H Glucose 101 Calcium 9.1 Total Bilirubin 0.8 AST 40 ALT 37 Alkaline Phosphatase 56 Total Creatine Kinase 101 CK-MB (CK-2) 1.69 CK-MB (CK-2) Rel Index 1.7 Troponin I < 0.012 Total Protein 8.1 Albumin 4.4 Globulin 3.7 Albumin/Globulin Ratio 1.2 Lipase 53 Assessment & Plan Assessment & Plan narrative: 1 - acute right basal ganglia CVA -Echocardiogram and Telemetry ordered -Lipids ordered -MRI shows this acute CVA -Consider adding Aspirin/Plavix to his Coumadin therapy -consider PT/OT/ST if symptoms change 2 - hypertension -Continue Losartan -add Beta al if indicated. 3 - history of pulmonary embolus -Continue Coumadin -INR 2.5 today 4 - Channing Danlos -Echocardiogram ordered.
[2018-12-07] MEDS: WARFARIN 2.5 MG TABLET PO (19:20)
--- NOTE | 2018-12-07 19:56 | PC.NURSE ---
Admit note: John admitted to room 224 via ER [facility], able to transfer from [facility] to [facility], gait steady. NIH = zero. Ox3, oriented to room & call button system. VS stable, BP 149/91 immediately after brought into room. Tele monitoring in place, tele #9. Rhythm appears sinus on monitor. HR 70's. RA oxygen high 90's, I did hear few fine crackles to left lower lobe posteriorly which cleared after taking few deep breaths. Denies SOB, recent falls or skin issues. Coumadin given. IV is saline locked to right wrist. He sat in chair to eat meal, ambulated to , voided 450 ml clear yellow urine. I gave him PJ bottoms so he could take off his jeans. He is now in bed, watching TV. Reminded to call nurse if he has any needs.
[2018-12-08 03:55] VITALS: BP 113/71; PULSE 71; RESP 15; TEMP 36.7; O2SAT 94
[2018-12-08 05:36] LABS: Cholesterol 225 mg/dL (140-199); HDL Cholesterol 28 mg/dL (40-60); LDL Cholesterol Calculated 164 mg/dL (<100); Triglycerides 164 mg/dL (35-150)
[2018-12-08 07:30] VITALS: BP 142/81; PULSE 69; RESP 18; TEMP 36.7; O2SAT 94
[2018-12-08] MEDS: LOSARTAN 50 MG TABLET 100 MG PO (08:16)
[2018-12-08] MEDS: SODIUM CHLORIDE 0.9% FLUSH 10 ML IV (08:17)
[2018-12-08 08:53] VITALS: O2SAT 94
[2018-12-08 12:07] VITALS: BP 141/79; PULSE 70; RESP 14; TEMP 36.3; O2SAT 94
--- NOTE | 2018-12-08 14:20 | CM.DANOTE ---
Addendum entered by SENDY Bustillos 12/08/18 15:05: ADD: Per MD, Echo results back and pt stable for d/c home today with no identified barriers to discharge. BF Original Note: Patient is a 68 year old male who was admitted on 12/07/18 for Slurred Speech. Pt has [employer] and [employer] [place] for insurance and his PCP is Dr. Geronimo and his Produce Laborer is Dr. John at . EMR was reviewed. Per MD, pt's symptoms seem to have resolved and ordering an Echo prior to d/c. Pending Echo results, pt may be stable for d/c home tonight. Per RN, pt independent in room and supportive sig other bedside. Pt is independent with ADL's at baseline and pt recently retired and moved to [place]. Pt drives and is active and denies any hx of HH or SNF. Preference is to d/c home today if possible and pt has been a bit antsy to get home since symptoms have resolved. Plan: SW to follow for Echo results to determine if pt is stable for d/c home via POV later today. No SW needs at this time. 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 No Advance Directives on File No History Provided By Patient Medical Record Has Patient been admitted in last 30 No days? Prior Living Arrangements House Household Members spouse Type of transporation used prior to Drives own vehicle admit Independent with ADL's Yes Is patient alert and oriented? Yes Caregiver for Another No Comment Likely home pending Echo results Barriers to Discharge No Discharge Plan Home Transportation Arrangement Family can likely provide transport at d/c. Referrals Initiated None needed Review Status In Process Please Provide Date Initial DC 12/08/18 Assessment Was Performed Next Review Type Continued Stay Review
--- NOTE | 2018-12-08 14:33 | PC.NURSE ---
Uneventful shift. Patient states he feels completely back to baseline. Steady on feet when up sba to urinate. Echo completed. MD notified of same and that patient is eager to dc home. Results are not yet in. Calls appropriately.
--- NOTE | 2018-12-08 14:41 | PM.DS.1 ---
History of Present Illness Chief complaint: SLURRED SPEECH Narrative: This is a 68-year-old male presenting with a stuttering onset of facial drooping and dysarthria. For the last couple of days he has experienced the symptoms. They became more intense over the previous 2 hr and so his insisted on him coming to the emergency department. When he arrived the symptoms had completely resolved and have not returned. He described a right-sided facial droop and difficulty talking both of which were mild. The 1st occurred 2 days ago. He has never had a stroke before but he does have a history of hypertension. There is no family history of stroke. 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 He appears to have a right basal ganglia infarct. He is quite irritated to have to stay in the hospital for ongoing telemetry and echocardiogram checks but his is able to persuade him. There is no history of diabetes or coronary artery disease. He does not take cholesterol lowering medicine. Discharge Providers Date of admission: 12/08/18 12:05 Discharge Date: 12/08/18 Discharge provider: Peterson Sotelo MD Summary Discharge Diagnosis: 1 - Clinically Acute/Radiologically Early Chronic right basal ganglia CVA 2 - hypertension 3 - history of pulmonary embolus 4 - [facility] Course: 1 - Clinically Acute/Radiologically Early Chronic - right basal ganglia CVA -Echocardiogram today and Telemetry since yesterday are normal. -Lipid panel with a total cholesterol of 225, LDL 164. Will start on atorvastatin. -MRI shows this acute CVA although it is interpreted as being an early chronic CVA. The clinical impression (which should take precedence) is that since the symptoms have just been noted, this was acute. -Consider adding Aspirin/Plavix to his Coumadin therapy -he did not need PT or OT. His swallowing appeared to be okay. 2 - hypertension -Continue Losartan -no additional blood pressure medicines were indicated. 3 - history of pulmonary embolus -Continue Coumadin -INR 2.5 on admission 4 - [facility] -Echocardiogram showed no hint of an aortic dissection 5 - Hyperlipidemia -start atorvastatin Status at Discharge Functional status at discharge: independent ambulation Overall status at discharge: patient is back to baseline Time Spent with Patient Less than 30 minutes Exam Vital Signs (past 8 hours): - 12/08/18 07:30 12/08/18 08:53 12/08/18 12:07 Temperature 98.1 F 97.4 F L Pulse Rate 69 70 Respiratory Rate 18 14 Blood Pressure 142/81 H 141/79 H Pulse Oximetry 94 94 94 Oxygen Delivery Method Room Air Oxygen Flow Rate 0 Objective Labs Result Diagrams: 12/07/18 Unknown 12/07/18 Unknown Labs: Laboratory Results - last 24 hr 12/07/18 12/08/18 13:01 04:45 PT 28.7 H INR 2.5 H APTT 45 H Triglycerides 164 H Cholesterol 225 H LDL Cholesterol, Calc 164 H HDL Cholesterol 28 L Discharge Plan Discharge Plan Patient Disposition: Home Discharge comment: Please follow up with Dr. Geronimo soon Dr. Geronimo is his PCP Dr. John at is his hydrometer tester Dr. Molina at [place] is his Vascular specialist Discharge Med Rec/Prescriptions Prescriptions: New atorvastatin 20 mg tablet 20 mg PO BEDTIME Qty: 30 RF: 0 Continued warfarin 2.5 mg tablet See Rx Instructions .ROUTE .COMPLEX RF: 0 losartan 100 mg tablet See Rx Instructions .ROUTE .COMPLEX RF: 0 Provider Discharge Instructions Diet: Low-cholesterol Visit Report/Discharge Packet Instructions: DI for Stroke-Ischemic Discharge Data Attending Provider: Peterson Sotelo Admit Date/Time: 12/08/18 12:05 Quality VTE Deep Vein Thrombosis/Pulmonary Embolism Present on Admission: No
== END 2018-12-08 15:15 | disposition home or self-care (01) | DRG 65 ==
LOC: ED 16:57 → AC 17:14
PROVIDERS: Admitting Provider Family Medicine; Emergency Provider Emergency Medicine; Visit Provider Family Medicine
DX: I63.511 Cerebral infarction due to unspecified occlusion or stenosis of right middle cerebral artery (principal); R29.818 Other symptoms and signs involving the nervous system; Q79.6 Ehlers-Danlos syndromes; R29.810 Facial weakness; R47.81 Slurred speech; I10 Essential (primary) hypertension; Z86.711 Personal history of pulmonary embolism; Z79.01 Long term (current) use of anticoagulants; Z86.718 Personal history of other venous thrombosis and embolism
CPT/HCPCS: 36415; 36591; 70450; 70553; 71045; 80053; 80061; 82550; 82553; 83690; 84484; 85025; 85610; 85730; 93005; 93010; 93306; 99283; 99285; 99291; G0378; A9579

== ENCOUNTER → 2022-04-28 10:04 | Outpatient (CLI) | payer MEDICARE, SELFPAY ==
[2018-12-07 19:06] VITALS: BMI 30.8
--- NOTE | 2022-04-28 10:14 | DI.CT.S_ITS ---
PROCEDURE: CT SOFT TISSUE NECK W CON INDICATIONS: 71-year-old male with right-sided neck swelling and history of non-Hodgkin lymphoma status post chemotherapy TECHNIQUE: Helical axial CT of the neck was obtained after intravenous contrast injection and reformatted in multiple planes. Radiation dose reduction was achieved utilizing automated exposure control and/or weight-based dosing. COMPARISON: None. FINDINGS: Skull Base: The visualized intracranial contents, skull, and orbits are unremarkable. Unilateral left ocular lens replacement noted. Visualized paranasal sinuses are clear. Pharynx and Larynx: The nasopharyngeal airway is patent and midline. Parapharyngeal soft tissues including palatine tonsils and base of the tongue are normal. Retropharyngeal space unremarkable. Normal appearance of the false and true vocal cords. Muscles and Fascial Planes: Fascial planes are well maintained. No abscess or mass lesion. Lymph Nodes: Bulky right-sided deep cervical adenopathy is noted. Several nodes contribute to a conglomerate right-sided mass lesion in the mid neck measuring 4.4 x 2.5 x 6.6 cm resulting in stenosis of the mid right jugular vein. Small nonenlarged nodes noted on the left. Vasculature: As above. Submandibular and Parotid Glands: Normal in size and attenuation. Thyroid: Unremarkable. No enlarged or calcified nodules. Bones: No acute fracture. No osteolytic or blastic lesion is evident. Normal bone mineralization. Lung Apices: The visualized lung apices are clear. IMPRESSION: 1. Bulky right-sided mediastinal adenopathy consistent with recurrent lymphoma. 2. 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 Approved by: Nehemias Last M.D. on 04/28/2022 at 15:32
[2022-04-28 11:00] LABS: Estimated Glomerular Filt Rate > 60 mL/min (>60)
== END ==
PROVIDERS: Referring Provider Internal Medicine; Visit Provider Internal Medicine
DX: R22.1 Localized swelling, mass and lump, neck (principal); Z85.72 Personal history of non-Hodgkin lymphomas; I87.1 Compression of vein; Z79.899 Other long term (current) drug therapy
CPT/HCPCS: 36415; 70491; 82565

== ENCOUNTER 2022-06-06 21:13 | Inpatient (IN) | payer OTHER, SELFPAY ==
[2018-12-07 19:06] VITALS: BMI 30.8
[2022-06-06 21:21] VITALS: BP 142/90; PULSE 117; RESP 22; TEMP 36.9; O2SAT 94
--- NOTE | 2022-06-06 21:23 | DI.RAD.S_ITS ---
PROCEDURE: XR CHEST 1V INDICATIONS: suspected sepsis TECHNIQUE: One view of the chest was acquired. COMPARISON: [facility], CR, XR CHEST 1V, 12/07/2018, 13:03. FINDINGS: Surgical changes and devices: Right internal jugular Port-A-Cath demonstrated with the tip projecting over the cavoatrial junction. Lungs and pleura: Lungs demonstrate no definite acute consolidation. There are few linear opacities in the lung bases redemonstrated likely representing atelectasis or scarring No pleural effusions or pneumothorax. Mediastinum: Mediastinal contours appear normal. Heart size is normal. Bones and chest wall: No suspicious bony lesions. Overlying soft tissues appear unremarkable. IMPRESSION: 1. No definite acute cardiopulmonary disease. Dictated by: Meño Joyce M.D. on 06/06/2022 at 22:47 Approved by: Meño Joyce M.D. on 06/06/2022 at 22:48
[2022-06-06 22:10] LABS: Hematocrit 45.6 % (41-53); Hemoglobin 15.5 g/dL (13.5-17.5); Mean Corpuscular HGB Conc 34.1 % (30-36); Mean Corpuscular Hemoglobin 31.2 PG (26-34); Mean Corpuscular Volume 91.4 fL (80-100); Platelet Count 70 X10^3/uL (150-400); Red Blood Cell Count 4.99 X10^6/uL (4.5-5.9)
[2022-06-06 22:11] LABS: Lactate (Lactic Acid) 1.6 mmol/L (0.7-2.1)
[2022-06-06 22:12] LABS: Alanine Aminotransferase 57 IU/L (<50); Albumin 3.5 g/dL (3.5-5.0); Albumin Globulin Ratio 1.1 (1.0-2.8); Alkaline Phosphatase 88 U/L (38-126); Aspartate Aminotransferase 27 IU/L (17-59); BUN Creatinine Ratio 40.5 (6-22); Bilirubin Total 1.4 mg/dL (0.2-1.3); Blood Urea Nitrogen 30 mg/dL (9-20); Calcium 7.8 mg/dL (8.4-10.2); Carbon Dioxide 23 mmol/L (22-32); Chloride 98 mmol/L (98-107); Estimated Glomerular Filt Rate > 60 mL/min (>60); Globulin 3.1 g/dL (1.7-4.1); Glucose 124 mg/dL (80-110); HEMOLYSIS < 15 (0-50); Lipase 93 U/L (23-300); Potassium 4.3 mmol/L (3.4-5.1); Sodium 129 mmol/L (137-145); Total Protein 6.6 g/dL (6.3-8.2)
[2022-06-06 22:20] LABS: Add Manual Diff / Slide Review YES; White Blood Cell Count 1.1 X10^3/uL (4.5-11.0)
[2022-06-06 22:21] LABS: COVID19 -Nasal RAPID Negative (Negative)
[2022-06-06] MEDS: cefTRIAXone 1,000 MG in SODIUM CHLORIDE 0.9% 100 ML 200 MG IV (23:08)
[2022-06-06] MEDS: SODIUM CHLORIDE 0.9% 1,000 ML 1000 ML IV (23:08)
--- NOTE | 2022-06-06 23:09 | ED.FEVER ---
HPI - Fever General Chief Complaint: Fever Stated Complaint: fever, neutropenic, sent by MD MOHAMUD Time Seen by Provider: 06/06/22 22:51 Source: patient and family Mode of arrival: Ambulatory History of Present Illness HPI Narrative: 71-year-old male nonsmoker with history of lymphoma and recent recurrence requiring chemotherapy, most recently 1 week ago, hypertension, hyperlipidemia and prior stroke presents for evaluation of fever and chills for the past 1-2 days. He denies any runny nose or sore throat but has had bit of a dry hacking cough. He denies chest pain or any significant shortness of breath. He is had no nausea, vomiting or diarrhea. He denies dysuria, frequency or urgency. He denies any skin breakdown or dental issues. He states he called his care team at the [facility] and was directed here for evaluation of neutropenic fever Related Data Home Medications Medication Instructions Recorded Confirmed losartan 100 mg tablet See Rx Instructions .Route .COMPLEX 12/07/18 12/07/18 warfarin 2.5 mg tablet See Rx Instructions .Route .COMPLEX 12/07/18 12/07/18 Previous Rx's Medication Instructions Recorded atorvastatin 20 mg tablet 20 mg PO BEDTIME #30 tabs 12/08/18 Allergies Allergy/AdvReac Type Severity Reaction Status Date / Time doxycycline Allergy Intermediate Photosensit Verified 12/07/18 12:51 ivity Sulfa (Sulfonamide AdvReac Photosensit Verified 06/06/22 23:07 Antibiotics) ivity Review of Systems Review of Systems Narrative: GENERAL: See HPI HEENT: Denies sinus pain, ear pain, sore throat, difficulty swallowing, dizziness. RESPIRATORY: See HPI CARDIOVASCULAR: Denies chest pain, palpitations, orthopnea, edema, GASTROINTESTINAL: Denies nausea, vomiting, abdominal pain, diarrhea, constipation, melena. : Denies dysuria, frequency, incontinence, hematuria, urinary retention. MUSCULOSKELETAL: denies weakness, joint pain, or bony pain SKIN: Denies rash, skin lesions, or other NEUROLOGIC: Denies weakness, headache, numbness, change in speech, confusion, seizures, incoordination. PSYCHIATRIC: No concerning psychosocial issues. 12 point review of systems is negative except for those stated above Patient History Medical History Diverticula, bladder DVT (deep venous thrombosis) Channing-Danlos syndrome Hypertension Pulmonary embolism Surgical History No pertinent past surgical history Family History Father Myocardial infarct Mother Congestive heart failure Social History household members: spouse Smoking Status: Never smoker Smoking Status: Never smoker alcohol intake frequency: holidays/special occasions only Substance Use Type: does not use Exam Narrative Exam Narrative: GENERAL: [71] year old patient appears stated age. Well-developed patient, in moderate distress, clearly not feeling well HEAD: Atraumatic. Normocephalic. EYES: Pupils equal round and reactive. Extraocular motions intact. No scleral icterus. No injection or drainage. ENT: Nose without bleeding, purulent drainage. Throat without erythema, tonsillar hypertrophy or exudate. Airway patent. NECK: Trachea midline. Non tender CARDIOVASCULAR: Regular rate and rhythm without murmurs, gallops, or rubs. Port site is clean, dry and intact with no redness, dehiscence RESPIRATORY: Clear to auscultation. Breath sounds equal bilaterally. No wheezes, rales, or rhonchi. Occasional dry hacking cough noted GASTROINTESTINAL: Abdomen soft, non-tender, nondistended. EXTREMITIES: No edema or joint tenderness. BACK: Nontender without deformity or crepitance. No flank tenderness. NEURO: AOx3. SKIN: No rash or erythema of visible areas Initial Vital Signs Initial Vital Signs: Vital Signs Temperature 98.5 F 06/06/22 21:21 Pulse Rate 117 H 06/06/22 21:21 Respiratory Rate 22 06/06/22 21:21 Blood Pressure 142/90 H 06/06/22 21:21 Pulse Oximetry 94 06/06/22 21:21 Oxygen Delivery Method 06/06/22 21:21 Course Orders Ordered: ED Orders 06/06/22 21:23 XR chest 1V Stat RT Consult Eval and Treat NOW 06/06/22 21:33 Blood Culture Stat COVID19 -Nasal RAPID/Pre-Proc Stat Complete Blood Count AUTO DIFF Stat Comprehensive Metabolic Panel Stat Lactate (Lactic Acid) Stat Lipase Stat Procalcitonin Stat 06/06/22 23:06 EKG-12 Lead Stat 06/06/22 23:19 CT angio chest PE protocol Stat 06/06/22 23:20 Respiratory Panel (Film Array) Stat Sodium Chloride (Normal Saline 0.9%) 2,585.49 mls @ 861.83 mls/hr 30 ml/kg infuse over 3 hr (2585.49 ml) IV NOW ONE Stop: 06/07/22 01:54 Last Admin: 06/07/22 00:18 Dose: 861.83 mls/hr Documented By: VALERY Discontinued Medications Sodium Chloride (Normal Saline 0.9%) 1,000 mls @ 1,000 mls/hr IV BOLUS ONE Stop: 06/06/22 22:22 Last Admin: 06/06/22 23:08 Dose: 1,000 mls/hr Documented By: VALERY Ceftriaxone Sodium 1,000 mg/ (Sodium Chloride) 100 mls @ 200 mls/hr IV NOW ONE Stop: 06/06/22 22:56 Last Infusion: 06/07/22 00:14 Dose: 0 mls/hr Documented By: Admin: 06/06/22 23:08 Dose: 200 mls/hr Documented By: VALERY Azithromycin 500 mg/ Dextrose 250 mls @ 250 mls/hr IV NOW ONE Stop: 06/07/22 00:59 Vital Signs Vital signs: Vital Signs - 8 hr 06/06/22 21:21 06/06/22 23:33 06/06/22 23:35 Temperature 98.5 F Pulse Rate 117 H 113 H 115 H Respiratory Rate 22 14 Blood Pressure 142/90 H Pulse Oximetry 94 91 Oxygen Delivery Method Room Air 06/06/22 23:35 06/07/22 00:00 06/07/22 00:00 Temperature Pulse Rate 108 H Respiratory Rate Blood Pressure 129/77 143/73 H Pulse Oximetry 96 Oxygen Delivery Method 06/07/22 00:30 06/07/22 00:30 Temperature Pulse Rate 105 H Respiratory Rate 26 H Blood Pressure 133/71 Pulse Oximetry 93 Oxygen Delivery Method MDM - Fever Lab Data Result diagrams: 06/06/22 21:33 06/06/22 21:33 Labs: Lab Results 06/06/22 06/06/22 06/06/22 Range/Units 21:33 21:33 21:33 WBC 1.1 L* (4.5-11.0) X10^3/uL RBC 4.99 (4.5-5.9) X10^6/uL Hgb 15.5 (13.5-17.5) g/dL Hct 45.6 (41-53) % MCV 91.4 (80-100) fL MCH 31.2 (26-34) PG MCHC 34.1 (30-36) % RDW 14.0 (11.6-14.8) % Plt Count 70 L (150-400) X10^3/uL Neut % (Auto) Not Reportable Lymph % (Auto) Not Reportable Edmunds % (Auto) Not Reportable Eos % (Auto) Not Reportable Baso % (Auto) Not Reportable Lymph # (Auto) Not Reportable Edmunds # (Auto) Not Reportable Baso # (Auto) Not Reportable Sodium 129 L (137-145) mmol/L Potassium 4.3 (3.4-5.1) mmol/L Chloride 98 (98-107) mmol/L Carbon Dioxide 23 (22-32) mmol/L BUN 30 H (9-20) mg/dL Creatinine 0.74 (0.66-1.25) mg/dL Estimated GFR > 60 (>60) mL/min BUN/Creatinine Ratio 40.5 H (6-22) Glucose 124 H (80-110) mg/dL Lactate 1.6 (0.7-2.1) mmol/L Calcium 7.8 L (8.4-10.2) mg/dL Total Bilirubin 1.4 H (0.2-1.3) mg/dL AST 27 (17-59) IU/L ALT 57 H (<50) IU/L Alkaline Phosphatase 88 (38-126) U/L Total Protein 6.6 (6.3-8.2) g/dL Albumin 3.5 (3.5-5.0) g/dL Globulin 3.1 (1.7-4.1) g/dL Albumin/Globulin Ratio 1.1 (1.0-2.8) Lipase 93 (23-300) U/L Procalcitonin 0.50 (<0.5) ng/mL Chlamy pneumoniae PCR (Not Detect) Adenovirus (PCR) (Not Detect) B. pertussis DNA (PCR) (Not Detecte) B.parapertussis DNA PCR (Not Detecte) Coronavirus OC43 (PCR) (Not Detect) Coronavirus HKU1 (PCR) (Not Detect) Coronavirus 229E (PCR) (Not Detect) SARS-CoV-2 (PCR) (Negative) Coronavirus NL63 (PCR) (Not Detect) Human Metapneumovir PCR (Not Detect) Influenza Type A (PCR) (Not Detect) Influenza Type B (PCR) (Not Detect) M. pneumoniae (PCR) (Not Detect) Parainfluenza 1 (PCR) (Not Detect) Parainfluenza 2 (PCR) (Not Detect) Parainfluenza 3 (PCR) (Not Detect) Parainfluenza 4 (PCR) (Not Detect) RSV (PCR) (Not Detect) Entero/Rhino (PCR) (Not Detect) 06/06/22 06/06/22 Range/Units 21:33 23:20 WBC (4.5-11.0) X10^3/uL RBC (4.5-5.9) X10^6/uL Hgb (13.5-17.5) g/dL Hct (41-53) % MCV (80-100) fL MCH (26-34) PG MCHC (30-36) % RDW (11.6-14.8) % Plt Count (150-400) X10^3/uL Neut % (Auto) Lymph % (Auto) Edmunds % (Auto) Eos % (Auto) Baso % (Auto) Lymph # (Auto) Edmunds # (Auto) Baso # (Auto) Sodium (137-145) mmol/L Potassium (3.4-5.1) mmol/L Chloride (98-107) mmol/L Carbon Dioxide (22-32) mmol/L BUN (9-20) mg/dL Creatinine (0.66-1.25) mg/dL Estimated GFR (>60) mL/min BUN/Creatinine Ratio (6-22) Glucose (80-110) mg/dL Lactate (0.7-2.1) mmol/L Calcium (8.4-10.2) mg/dL Total Bilirubin (0.2-1.3) mg/dL AST (17-59) IU/L ALT (<50) IU/L Alkaline Phosphatase (38-126) U/L Total Protein (6.3-8.2) g/dL Albumin (3.5-5.0) g/dL Globulin (1.7-4.1) g/dL Albumin/Globulin Ratio (1.0-2.8) Lipase (23-300) U/L Procalcitonin (<0.5) ng/mL Chlamy pneumoniae PCR Not detected (Not Detect) Adenovirus (PCR) Not detected (Not Detect) B. pertussis DNA (PCR) Not detected (Not Detecte) B.parapertussis DNA PCR Not detected (Not Detecte) Coronavirus OC43 (PCR) Not detected (Not Detect) Coronavirus HKU1 (PCR) Not detected (Not Detect) Coronavirus 229E (PCR) Not detected (Not Detect) SARS-CoV-2 (PCR) Negative Not detected (Negative) Coronavirus NL63 (PCR) Not detected (Not Detect) Human Metapneumovir PCR Not detected (Not Detect) Influenza Type A (PCR) Not detected (Not Detect) Influenza Type B (PCR) Not detected (Not Detect) M. pneumoniae (PCR) Not detected (Not Detect) Parainfluenza 1 (PCR) Not detected (Not Detect) Parainfluenza 2 (PCR) Not detected (Not Detect) Parainfluenza 3 (PCR) Not detected (Not Detect) Parainfluenza 4 (PCR) Not detected (Not Detect) RSV (PCR) Not detected (Not Detect) Entero/Rhino (PCR) Not detected (Not Detect) Imaging Data Chest x-ray: Radiologist's Impression: Close Chest CTA (Signed) Meño Joyce - 06/06/22 Chest X-Ray (Signed) Meño Joyce - 06/06/[address] (Signed) Nehemias Last - 04/28/[address] (Cancelled) 04/28/22 Brain MRI (Signed) Kate Dyer - 12/07/[address] (Signed) Kate Dyer - 12/07/18 Chest X-Ray (Signed) Kate Dyer - 12/07/18 Echocardiogram Ultrasound (Signed) Reji Griffin - 12/07/[address] [address] XRay Report Signed Patient: John Sullivan MR#: [id number] : 1950 Acct:[id number] Age/Sex: 71 / M Date of Service: 06/06/22 Loc: ED Accession Number: [id number] ?? Procedure: XR chest 1V Ordering Provider: Dav Pinedo D.O. PROCEDURE:? XR CHEST 1V ? INDICATIONS:? suspected sepsis ? TECHNIQUE:? One view of the chest was acquired.? ? COMPARISON:? [facility], CR, XR CHEST 1V, 12/07/2018, 13:03. ? FINDINGS:? ? Surgical changes and devices:? Right internal jugular Port-A-Cath demonstrated with the tip projecting over the cavoatrial junction. ? Lungs and pleura:? Lungs demonstrate no definite acute consolidation.? There are few linear opacities in the lung bases redemonstrated likely representing atelectasis or scarring No pleural effusions or pneumothorax.? ? Mediastinum:? Mediastinal contours appear normal.? Heart size is normal.? ? Bones and chest wall:? No suspicious bony lesions.? Overlying soft tissues appear unremarkable.? ? IMPRESSION:? ? 1. No definite acute cardiopulmonary disease. ? ? Dictated by: Meño Joyce M.D. on 06/06/2022 at 22:47 ? ? Approved by: Meño Joyce M.D. on 06/06/2022 at 22:48? CT scan - chest: Radiologist's Impression: [place] [address] CT Scan Report Signed Patient: John Sullivan MR#: [id number] : 1950 Acct:[id number] Age/Sex: 71 / M Date of Service: 06/06/22 Loc: ED Accession Number: [id number] ?? Procedure: CT angio chest PE protocol Ordering Provider: Dav Pinedo D.O. PROCEDURE:? CT ANGIO CHEST PE PROTOCOL ? INDICATIONS:? sepsis, tachycardia, SOB, cough, chemo ? TECHNIQUE:? After the administration of intravenous contrast, 2 mm thick sections acquired from the pulmonary apices to the posterior costophrenic angles.? 3-dimensional maximum intensity projection (MIP) coronal and sagittal reformats were then acquired through the thorax.? For radiation dose reduction, the following was used:? automated exposure control, adjustment of mA and/or kV according to patient size.? ? COMPARISON:? None. ? FINDINGS:? Image quality:? There is mild motion artifact.? ? Pulmonary arteries:? There is suboptimal opacification of the pulmonary arteries limiting evaluation of subsegmental branches.? No discrete filling defects identified to suggest central pulmonary embolism ? Lower Neck: No lymphadenopathy by size criteria. Thyroid:? Visualized thyroid demonstrates no discrete nodules. Axillae: No lymphadenopathy by size criteria. Chest Wall:? There is a right chest wall internal jugular Port-A-Cath with the tip extending into the superior vena cava.? Bones: Visualized osseous structures demonstrate no suspicious lesions. ? Lungs and Airways:? No acute consolidation.? There are indistinct heterogeneous bilateral areas of ground-glass opacity with mild the thickening.? There is bibasilar atelectasis.? Scarring also demonstrated within the right middle lobe and left lingula.? The trachea and central airways are patent. Pleura: No pneumothorax or pleural effusions.? ? Heart: Heart size is normal.? No pericardial effusion. Thoracic Vessels: The aorta and pulmonary arteries are normal in size.? Mediastinum and Natalie: No lymphadenopathy by size criteria. Esophagus: No wall thickening. No hiatal hernia.? ? Abdomen:? Visualized upper abdominal solid organs appear normal in the early arterial phase of enhancement.? ? IMPRESSION:? ? 1. No evidence of central pulmonary embolism.? Evaluation distal subsegmental pulmonary arteries limited by suboptimal contrast opacification. ? 2. Bilateral heterogeneous patchy indistinct ground-glass opacities with mild septal thickening suggestive of pulmonary edema.? The differential includes a mild infectious or inflammatory process.? ? Dictated by: Meño Joyce M.D. on 06/07/2022 at 0:27 ? ? Approved by: Meño Joyce M.D. on 06/07/2022 at 0:41 ? MDM Narrative Medical decision making narrative: Patient with recent chemotherapy and use of prednisone presents with fever, shaking chills, tachycardia and tachypnea and is treated as a sepsis alert. Cultures, lactate obtain, antibiotics ordered. No obvious source initially, patient will require hospitalization for further monitoring and treatment, cultures are pending Discharge Plan Departure Patient Disposition: Admitted As Inpatient Clinical Impression: Sepsis, Fever and neutropenia Admit Date/Time: 06/07/22 01:00 Admit Provider: Kortney Cook
--- NOTE | 2022-06-06 23:19 | DI.CT.S_ITS ---
PROCEDURE: CT ANGIO CHEST PE PROTOCOL INDICATIONS: sepsis, tachycardia, SOB, cough, chemo TECHNIQUE: After the administration of intravenous contrast, 2 mm thick sections acquired from the pulmonary apices to the posterior costophrenic angles. 3-dimensional maximum intensity projection (MIP) coronal and sagittal reformats were then acquired through the thorax. For radiation dose reduction, the following was used: automated exposure control, adjustment of mA and/or kV according to patient size. COMPARISON: None. FINDINGS: Image quality: There is mild motion artifact. Pulmonary arteries: There is suboptimal opacification of the pulmonary arteries limiting evaluation of subsegmental branches. No discrete filling defects identified to suggest central pulmonary embolism Lower Neck: No lymphadenopathy by size criteria. Thyroid: Visualized thyroid demonstrates no discrete nodules. Axillae: No lymphadenopathy by size criteria. Chest Wall: There is a right chest wall internal jugular Port-A-Cath with the tip extending into the superior vena cava. Bones: Visualized osseous structures demonstrate no suspicious lesions. Lungs and Airways: No acute consolidation. There are indistinct heterogeneous bilateral areas of ground-glass opacity with mild the thickening. There is bibasilar atelectasis. Scarring also demonstrated within the right middle lobe and left lingula. The trachea and central airways are patent. Pleura: No pneumothorax or pleural effusions. Heart: Heart size is normal. No pericardial effusion. Thoracic Vessels: The aorta and pulmonary arteries are normal in size. Mediastinum and Natalie: No lymphadenopathy by size criteria. Esophagus: No wall thickening. No hiatal hernia. Abdomen: Visualized upper abdominal solid organs appear normal in the early arterial phase of enhancement. IMPRESSION: 1. No evidence of central pulmonary embolism. Evaluation distal subsegmental pulmonary arteries limited by suboptimal contrast opacification. 2. Bilateral heterogeneous patchy indistinct ground-glass opacities with mild septal thickening suggestive of pulmonary edema. The differential includes a mild infectious or inflammatory process. Dictated by: Meño Joyce M.D. on 06/07/2022 at 0:27 Approved by: Meño Joyce M.D. on 06/07/2022 at 0:41
[2022-06-06 23:33] VITALS: PULSE 113
[2022-06-06 23:35] VITALS: BP 129/77; PULSE 115; RESP 14; O2SAT 91
[2022-06-07] VITALS (13 sets, daily range): BP systolic 116–143; BP diastolic 60–83; PULSE 80–113; RESP 16–27; TEMP 36.3–37.5; O2SAT 92–96; BMI 31.2
[2022-06-07 00:18] LABS: Adenovirus Not Detected (Not Detect); Coronavirus 229E Not Detected (Not Detect); Coronavirus HKU1 Not Detected (Not Detect); Coronavirus NL 63 Not Detected (Not Detect); Coronavirus OC43 Not Detected (Not Detect); Human Metapneumovirus Not Detected (Not Detect); Human Rhinovirus/Enterovirus Not Detected (Not Detect); SARS- CoV-2 Not Detected (Not Detecte)
[2022-06-07] MEDS: SODIUM CHLORIDE 0.9% 2,585.49 ML 861.83 ML IV (00:18)
[2022-06-07 00:19] LABS: B. parapertussis Not Detected (Not Detecte); Bordetella pertussis Not Detected (Not Detecte); Chlamydophila pneumoniae Not Detected (Not Detect); Influenza A Not Detected (Not Detect); Influenza B Not Detected (Not Detect); Mycoplasma pneumoniae Not Detected (Not Detect); Parainfluenza Virus 1 Not Detected (Not Detect); Parainfluenza Virus 2 Not Detected (Not Detect); Parainfluenza Virus 3 Not Detected (Not Detect); Parainfluenza Virus 4 Not Detected (Not Detect); Respiratory Syncytial Virus Not Detected (Not Detect)
[2022-06-07] MEDS: AZITHROMYCIN 500 MG in DEXTROSE 5% IN WATER 250 ML 250 MG IV (01:11)
[2022-06-07] MEDS: SODIUM CHLORIDE 0.9% 1,000 ML 60 ML IV ×2 (02:51→20:00)
[2022-06-07 03:51] LABS: Neutrophils Absolute Manual 638 /uL (3000-5900); Total Cells Counted 100
[2022-06-07 03:52] LABS: Platelet Estimate Decreased on smear; RBC Morphology Normal Morphology
[2022-06-07 05:08] LABS: INR 2.5 (0.9-1.3); Prothrombin Time 29.1 SECONDS (10.1-12.7)
[2022-06-07 05:13] LABS: Hematocrit 41.2 % (41-53); Hemoglobin 14.1 g/dL (13.5-17.5); Mean Corpuscular HGB Conc 34.3 % (30-36); Mean Corpuscular Hemoglobin 31.4 PG (26-34); Mean Corpuscular Volume 91.5 fL (80-100); Platelet Count 61 X10^3/uL (150-400); Red Blood Cell Count 4.51 X10^6/uL (4.5-5.9); Red Cell Distribution Width 13.8 % (11.6-14.8)
[2022-06-07 05:14] LABS: Alanine Aminotransferase 44 IU/L (<50); Albumin 3.1 g/dL (3.5-5.0); Albumin Globulin Ratio 1.1 (1.0-2.8); Alkaline Phosphatase 69 U/L (38-126); Aspartate Aminotransferase 23 IU/L (17-59); BUN Creatinine Ratio 35.2 (6-22); Bilirubin Total 1.9 mg/dL (0.2-1.3); Blood Urea Nitrogen 25 mg/dL (9-20); Carbon Dioxide 21 mmol/L (22-32); Chloride 101 mmol/L (98-107); Estimated Glomerular Filt Rate > 60 mL/min (>60); Globulin 2.7 g/dL (1.7-4.1); Glucose 127 mg/dL (80-110); HEMOLYSIS 16 (0-50); Magnesium 1.6 mg/dL (1.6-2.3); Potassium 4.3 mmol/L (3.4-5.1); Sodium 130 mmol/L (137-145); Total Protein 5.8 g/dL (6.3-8.2)
--- NOTE | 2022-06-07 05:18 | P.HP_ITS ---
History of Present Illness History of Present Illness Date Patient Seen: 06/07/22 Time Patient Seen: 01:38 Chief complaint: fever, neutropenic, sent by MD FAYE Narrative: John Sullivan is a 71-year-old male nonsmoker with history of lymphoma and recent recurrence requiring chemotherapy, most recently 1 week ago, hypertension, hyperlipidemia and prior Rt basal CVA, HX of DVT/PE presents for evaluation of acute onset fever, body aches and chills for the past 1-2 days.? He denies any nasal drainage, sore throat but has had bit of a dry hacking cough.? He denies chest pain, shortness of breath, abd pain, nausea, vomiting, diarrhea, dysuria, frequency, urgency, but does complain of difficulty urinating or emptying. He is unsure how long this has been going on, no suprapubic or CVA tenderness. Denies hematuria or melena. He denies any skin breakdown or dental issues.? He states he called his care team at the [facility] and was directed here for evaluation of neutropenic fever. Upon admit exam patient states that his body aches fever and chills have improved but still feels very weak. Upon admit patient is afebrile temp 98.5?, BP 133/71, HR 105, slightly tachypneic RR 26, O2 saturation 93% on room air. Patient has a WBC of 1.1, plat elets 70, hyponatremia sodium 129, BUN of 30, glucose 124, calcium 7.8, total bili 1.4, ALT 57, glucose of 124, lipase procalcitonin and respiratory panel are all negative, chest x-ray negative for any acute cardiopulmonary processes, CTA is negative for PE. Patient admitted for sepsis neutropenic fever likely secondary to chemotherapy for lymphoma with resulting thrombocytopenia, leukopenia, and hyponatremia Patient History Medical History Diverticula, bladder DVT (deep venous thrombosis) Channing-Danlos syndrome Hypertension Pulmonary embolism Surgical History No pertinent past surgical history Family & Social History Family History Father Myocardial infarct Mother Congestive heart failure Social History: household members spouse Prior Living Arrangements House Safety & Behavioral: Feels Safe in Current Yes Environment Been Physically Hurt or No Threatened By a Person Tobacco & Substance use: Smoking Status Never smoker alcohol intake frequency holiday/special occasion Substance Use Type does not use Meds Home Medications and Allergies Home Medications Medication Instructions Recorded Confirmed Type losartan 100 mg tablet 50 mg PO DAILY 12/07/18 06/07/22 History warfarin 2.5 mg tablet See Rx Instructions .Route .COMPLEX 12/07/18 12/07/18 History Allergies Allergy/AdvReac Type Severity Reaction Status Date / Time doxycycline Allergy Intermediate Photosensit Verified 12/07/18 12:51 ivity Sulfa (Sulfonamide AdvReac Photosensit Verified 06/06/22 23:07 Antibiotics) ivity Review of Systems Review of Systems Narrative: All 12 point systems reviewed with the patient and are negative except otherwise documented. Exam Vital Signs (past 8 hours): - 06/06/22 21:21 06/06/22 23:33 06/06/22 23:35 Temperature 98.5 F Pulse Rate 117 H 113 H 115 H Respiratory Rate 22 14 Blood Pressure 142/90 H Pulse Oximetry 94 91 Oxygen Delivery Method Room Air Oxygen Flow Rate 06/06/22 23:35 06/07/22 00:00 06/07/22 00:00 Temperature Pulse Rate 108 H Respiratory Rate Blood Pressure 129/77 143/73 H Pulse Oximetry 96 Oxygen Delivery Method Oxygen Flow Rate 06/07/22 00:30 06/07/22 00:30 06/07/22 01:00 Temperature Pulse Rate 105 H Respiratory Rate 26 H Blood Pressure 133/71 122/72 Pulse Oximetry 93 Oxygen Delivery Method Oxygen Flow Rate 06/07/22 01:00 06/07/22 02:04 06/07/22 02:15 Temperature 99.5 F 98.8 F Pulse Rate 113 H 99 H Respiratory Rate 21 19 Blood Pressure 125/70 Pulse Oximetry 92 93 Oxygen Delivery Method Oxygen Flow Rate 0 06/07/22 04:00 06/07/22 01:30 Temperature 97.4 F L Pulse Rate 89 Respiratory Rate 27 H Blood Pressure 117/62 Pulse Oximetry 95 94 Oxygen Delivery Method Room Air Oxygen Flow Rate 0 Oxygen Delivery Method Room Air Oxygen Flow Rate 0 Narrative Exam Narrative: GENERAL: [71] year old patient appears stated age. Well-developed patient, in moderate distress, clearly not feeling well HEAD: Atraumatic. Normocephalic. EYES: Pupils equal round and reactive. Extraocular motions intact. No scleral icterus. No injection or drainage. ENT: Nose without bleeding, purulent drainage. Throat without erythema, tonsillar hypertrophy or exudate. Airway patent. NECK: Trachea midline. Non tender CARDIOVASCULAR: Regular rate and rhythm without murmurs, gallops, or rubs.? Port site is clean, dry and intact with no redness, dehiscence RESPIRATORY: Clear to auscultation. Breath sounds equal bilaterally. No wheezes, rales, or rhonchi.? Occasional dry hacking cough noted GASTROINTESTINAL: Abdomen soft, non-tender, nondistended. EXTREMITIES: No edema or joint tenderness. BACK: Nontender without deformity or crepitance. No flank tenderness. NEURO: AOx3. SKIN: No rash or erythema of visible areas Objective Labs Result Diagrams: 06/06/22 21:33 06/06/22 21:33 Labs: Laboratory Results - last 24 hr 06/06/22 06/06/22 06/06/22 21:33 21:33 21:33 WBC 1.1 L* RBC 4.99 Hgb 15.5 Hct 45.6 MCV 91.4 MCH 31.2 MCHC 34.1 RDW 14.0 Plt Count 70 L Neut % (Auto) Not Reportable Lymph % (Auto) Not Reportable [place] % (Auto) Not Reportable Eos % (Auto) Not Reportable Baso % (Auto) Not Reportable Lymph # (Auto) Not Reportable [place] # (Auto) Not Reportable Baso # (Auto) Not Reportable Total Counted 100 Seg Neutrophils % 58.0 Lymphocytes % (Manual) 22.0 L Atypical Lymphs % 14.0 H Eosinophils % (Manual) 6.0 H Neutrophils # (Manual) 638 L Platelet Estimate Decreased on smear RBC Morphology Normal morphology Sodium 129 L Potassium 4.3 Chloride 98 Carbon Dioxide 23 BUN 30 H Creatinine 0.74 Estimated GFR > 60 BUN/Creatinine Ratio 40.5 H Glucose 124 H Lactate 1.6 Calcium 7.8 L Total Bilirubin 1.4 H AST 27 ALT 57 H Alkaline Phosphatase 88 Total Protein 6.6 Albumin 3.5 Globulin 3.1 Albumin/Globulin Ratio 1.1 Lipase 93 Procalcitonin 0.50 Chlamy pneumoniae PCR Adenovirus (PCR) B. pertussis DNA (PCR) B.parapertussis DNA PCR Coronavirus OC43 (PCR) Coronavirus HKU1 (PCR) Coronavirus 229E (PCR) SARS-CoV-2 (PCR) Coronavirus NL63 (PCR) Human Metapneumovir PCR Influenza Type A (PCR) Influenza Type B (PCR) M. pneumoniae (PCR) Parainfluenza 1 (PCR) Parainfluenza 2 (PCR) Parainfluenza 3 (PCR) Parainfluenza 4 (PCR) RSV (PCR) Entero/Rhino (PCR) 06/06/22 06/06/22 21:33 23:20 WBC RBC Hgb Hct MCV MCH MCHC RDW Plt Count Neut % (Auto) Lymph % (Auto) Leon % (Auto) Eos % (Auto) Baso % (Auto) Lymph # (Auto) Leon # (Auto) Baso # (Auto) Total Counted Seg Neutrophils % Lymphocytes % (Manual) Atypical Lymphs % Eosinophils % (Manual) Neutrophils # (Manual) Platelet Estimate RBC Morphology Sodium Potassium Chloride Carbon Dioxide BUN Creatinine Estimated GFR BUN/Creatinine Ratio Glucose Lactate Calcium Total Bilirubin AST ALT Alkaline Phosphatase Total Protein Albumin Globulin Albumin/Globulin Ratio Lipase Procalcitonin Chlamy pneumoniae PCR Not detected Adenovirus (PCR) Not detected B. pertussis DNA (PCR) Not detected B.parapertussis DNA PCR Not detected Coronavirus OC43 (PCR) Not detected Coronavirus HKU1 (PCR) Not detected Coronavirus 229E (PCR) Not detected SARS-CoV-2 (PCR) Negative Not detected Coronavirus NL63 (PCR) Not detected Human Metapneumovir PCR Not detected Influenza Type A (PCR) Not detected Influenza Type B (PCR) Not detected M. pneumoniae (PCR) Not detected Parainfluenza 1 (PCR) Not detected Parainfluenza 2 (PCR) Not detected Parainfluenza 3 (PCR) Not detected Parainfluenza 4 (PCR) Not detected RSV (PCR) Not detected Entero/Rhino (PCR) Not detected Assessment & Plan Assessment & Plan narrative: John Sullivan is a 71-year-old male nonsmoker with history of lymphoma and recent recurrence requiring chemotherapy, most recently 1 week ago, hypertension, hyperlipidemia and prior Rt basal CVA, HX of DVT/PE being admitted for sepsis, neutropenic fever secondary to chemotherapy for lymphoma, resulting in t hrombocytopenia and hyponatremia 1. Neutropenic fever, secondary to chemotherapy for lymphoma, acute, present on admission -with resulting in severe leukopenia 1.1, thrombocytopenia 70, and hyponatremia 129, SOFA:4 -oncologist Dr. Faye - Dr. Stephenson to consult today -Request for oncology notes placed -Thrombocytopenia-Trend CBC, monitor for PLT <50- require replacement -mild hyponatremia- NS @60cc/Hr -antiemetics, fever and pain management. -Monitor for sepsis/septic shock -Isolation precautions -Blood cultures pending. -patient did complain of urinary retention and difficulty emptying ordered bladder scans/Cath as needed, and urine culture. U/A in ED was negative. 2. History of right basal ganglia CVA, stable present on admission -no intervention required at this time 3. Essential hypertension, chronic, present on admission-well controlled -Continue Losartan 4. history of pulmonary embolus/DVT, chronic, present on admission -Continue Coumadin -INR ordered 5. Hyperlipidemia, chronic, present on admission -continue Lipitor 5. 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 I confirmed that the patient's advanced care plan is present, Code status is documented and/or surrogate decision maker is listed in the patient's medical record. Time Spent With Patient Critical Care time: I spent a total of [] minutes of critical care time on this patient's care today; this time is exclusive of procedural time. Scores GCS Lesa coma scale eye opening: Spontaneous Lesa coma scale verbal response: Orientated Lesa coma scale motor response: Obey commands [place] coma scale total score: 15 Quality VTE Deep Vein Thrombosis/Pulmonary Embolism Present on Admission: No
--- NOTE | 2022-06-07 05:21 | PC.NURSE ---
Admit/NOC Shift Note- Patient arrived to room via stretcher at 0210. Patient alert and oriented and able to make needs known to staff. Admit questions done, medications reviewed, physical assessment done, and skin check completed. Patient oriented to bed and bed controls, room,lights, bathroom, menu, phone, and call santo/tv remote. Patient agrees to call for assistance. Safety measures in place. Call santo and phone within reach. Bed alarm activated. Will continue to monitor,
[2022-06-07 05:23] LABS: NT-proBNP (BNP-Adult 18+) 405 pg/mL (<125)
[2022-06-07 05:43] LABS: C-Reactive Protein Quant 8.7 mg/dL (<1.0)
[2022-06-07 05:49] LABS: Add Manual Diff / Slide Review YES; White Blood Cell Count 0.8 X10^3/uL (4.5-11.0)
[2022-06-07 07:06] LABS: Neutrophils Absolute Manual 496 /uL (3000-5900); Total Cells Counted 50
[2022-06-07 07:07] LABS: Platelet Estimate Decreased on smear; RBC Morphology Normal Morphology
[2022-06-07] MEDS: LOSARTAN 50 MG TABLET 100 MG PO (09:09)
[2022-06-07] MEDS: PIPERACILLIN/TAZO 4.5 GM in SODIUM CHLORIDE 0.9% 100 ML IV ×2 (09:09→16:23)
[2022-06-07] MEDS: VANCOMYCIN 1,000 MG/200 ML PIGGYBACK 200 MG IV ×2 (09:47→21:00)
[2022-06-07 10:50] LABS: Appearance Urine UA CLEAR; Bilirubin Urine UA NEGATIVE (NEGATIVE); Color Urine UA YELLOW; Glucose Urine UA TRACE g/dL (Negative); Ketones Urine UA NEGATIVE (NEGATIVE); Leukocyte Esterase Urine UA NEGATIVE (NEGATIVE); Nitrite Urine UA NEGATIVE (Negative); Occult Blood Urine UA TRACE-LYSED (Negative); Protein Urine UA NEGATIVE (Negative); pH Urine UA 6.5 (4.5-8.0)
[2022-06-07 11:00] LABS: Bacteria Urine Occasional (0-1); RBC Urine 0-1/HPF (0-5/HPF); Squamous Epithelial Cell Urine 0-1 /HPF (0-5/HPF); WBC Urine 0-1/HPF (0-5/HPF)
[2022-06-07] MEDS: MAGNESIUM CHLORIDE 64 MG TABLET 128 MG PO (12:09)
--- NOTE | 2022-06-07 12:36 | CM.DANOTE ---
DCP: Case received, EMR reviewed. Did not enter patient's room secondary to precautions, called room, patient did not answer. Was able to complete DCP assessment based upon information from nursing and EMR. Patient is a 71 year old male who admitted early this morning to the care of the hospitalist team. PCP: Unknown at this time, but does go to oncology for treatment. Payer: confirmed: [facility] [employer]. Patient came to the hospital via private vehicle secondary to having fever, body aches and chills for the past couple of days. Patient has history of lymphoma and recent recurrence requiring chemo treatment, recently a week ago, and has his oncology team at [facility]. Patient was noted to have neutropenic feve secondary to chemotheapy for lymphoma, thrombocytopenia. Attempted to get in touch with patient, but he did not answer his phone. Was told by nursing that patient has been up to commode with stand by. It is noted that he resides in [place] with spouse, Oliva. He is independent at his baseline. P: DCP to continue to follow for any needs. Patient should be able to go home when he is deemed medically stable. Bety Gaines RN/Pharmacist Helper Discharge Planning/Care Management CM Discharge Assessment Start: 06/07/22 12:35 Freq: Status: Active Protocol: Document 06/07/22 12:35 (Rec: 06/07/22 12:36 [id number]) Discharge Planning Assessment Assigned Compliance Advisor Bety Gaines RN/Pharmacist Helper Advance Directives? No Advance Directives on File No History Provided By Patient,Medical Record Prior Living Arrangements House Household Members spouse Type of transporation used prior to Drives own vehicle admit Independent with ADL's Yes Is patient alert and oriented? Yes Caregiver for Another No Barriers to Discharge No Discharge Plan Home Transportation Arrangement Family can likely provide transport at d/c. Referrals Initiated None needed Whiteboard Updated in Patient Room with No name and ext. # of Compliance Advisor Comment Patient is on precautions, due to his neutropenia, did not enter room. Review Status In Process Next Review Type Continued Stay Review
[2022-06-07] MEDS: WARFARIN 5 MG TABLET 2.5 MG PO (16:23)
[2022-06-08] MEDS: PIPERACILLIN/TAZO 4.5 GM in SODIUM CHLORIDE 0.9% 100 ML IV ×2 (00:49→08:40)
[2022-06-08 04:00] VITALS: BP 112/59; PULSE 89; RESP 17; TEMP 36.8; O2SAT 93
[2022-06-08 05:39] LABS: Alanine Aminotransferase 38 IU/L (<50); Albumin 2.9 g/dL (3.5-5.0); Alkaline Phosphatase 65 U/L (38-126); Aspartate Aminotransferase 23 IU/L (17-59); BUN Creatinine Ratio 23.5 (6-22); Bilirubin Total 1.6 mg/dL (0.2-1.3); Blood Urea Nitrogen 16 mg/dL (9-20); Calcium 7.1 mg/dL (8.4-10.2); Carbon Dioxide 21 mmol/L (22-32); Chloride 103 mmol/L (98-107); Estimated Glomerular Filt Rate > 60 mL/min (>60); Globulin 2.8 g/dL (1.7-4.1); Glucose 124 mg/dL (80-110); HEMOLYSIS 19 (0-50); Magnesium 1.7 mg/dL (1.6-2.3); Sodium 129 mmol/L (137-145); Total Protein 5.7 g/dL (6.3-8.2)
[2022-06-08 06:41] LABS: Hematocrit 40.2 % (41-53); Hemoglobin 13.4 g/dL (13.5-17.5); Mean Corpuscular HGB Conc 33.4 % (30-36); Mean Corpuscular Hemoglobin 31.4 PG (26-34); Mean Corpuscular Volume 93.9 fL (80-100); Platelet Count 60 X10^3/uL (150-400); Red Blood Cell Count 4.28 X10^6/uL (4.5-5.9); Red Cell Distribution Width 13.8 % (11.6-14.8)
[2022-06-08 06:45] LABS: White Blood Cell Count 0.5 X10^3/uL (4.5-11.0)
[2022-06-08 07:45] VITALS: BP 131/79; PULSE 107; PULSE 108; RESP 18; TEMP 36.6; O2SAT 95; O2SAT 96
[2022-06-08] MEDS: LOSARTAN 50 MG TABLET 100 MG PO (08:40)
[2022-06-08] MEDS: VANCOMYCIN TROUGH 1 REQUEST MISC (08:44)
[2022-06-08] MEDS: VANCOMYCIN 1,000 MG/200 ML PIGGYBACK 200 MG IV (09:28)
[2022-06-08] MEDS: MAGNESIUM CHLORIDE 64 MG TABLET 128 MG PO (09:56)
[2022-06-08] MEDS: VANCOMYCIN PEAK 1 REQUEST MISC (11:44)
[2022-06-08 12:04] LABS: Vancomycin Peak 19.8 ug/mL (20-40)
--- NOTE | 2022-06-08 14:11 | P.PN_ITS ---
Subjective Subjective Date Patient Seen: 06/08/22 Interval history: Feels profoundly weak, urinating a lot. Feels chills but no measured fever. Exam Vital Signs (past 8 hours): - 06/08/22 07:45 Temperature 97.9 F Pulse Rate 108 H Respiratory Rate 18 Blood Pressure 131/79 Pulse Oximetry 96 Oxygen Flow Rate 0 Oxygen Delivery Method Room Air Oxygen Flow Rate 0 Narrative Exam Narrative: GENERAL:Well-developed patient, mildly acutely ill appearing no acute distress. HEENT: NCAT. MMM CARDIOVASCULAR: Regular rate and rhythm without murmurs, gallops, or rubs.? Port site is clean, dry and intact with no redness, dehiscence RESPIRATORY: Clear to auscultation. Breath sounds equal bilaterally. No wheezes, rales, or rhonchi.? Occasional dry hacking cough noted GASTROINTESTINAL: Abdomen soft, non-tender, nondistended. EXTREMITIES: No edema or joint tenderness. BACK: Nontender without deformity or crepitance. No flank tenderness. NEURO: AOx3. SKIN: No rash or erythema of visible areas Objective Labs Result Diagrams: 06/08/22 04:36 06/08/22 04:36 Labs: Laboratory Results - last 24 hr 06/08/22 06/08/22 06/08/22 04:36 04:36 04:36 WBC 0.5 L* RBC 4.28 L Hgb 13.4 L Hct 40.2 L MCV 93.9 MCH 31.4 MCHC 33.4 RDW 13.8 Plt Count 60 L Neut % (Auto) Cancelled Lymph % (Auto) Cancelled [place] % (Auto) Cancelled Eos % (Auto) Cancelled Baso % (Auto) Cancelled Neut # (Auto) Cancelled Lymph # (Auto) Cancelled [place] # (Auto) Cancelled Eos # (Auto) Cancelled Baso # (Auto) Cancelled Sodium 129 L Potassium 4.0 Chloride 103 Carbon Dioxide 21 L BUN 16 Creatinine 0.68 Estimated GFR > 60 BUN/Creatinine Ratio 23.5 H Glucose 124 H Calcium 7.1 L Magnesium 1.7 Total Bilirubin 1.6 H AST 23 ALT 38 Alkaline Phosphatase 65 Total Protein 5.7 L Albumin 2.9 L Globulin 2.8 Albumin/Globulin Ratio 1.0 Vancomycin Peak Vancomycin Trough 8.0 L 06/08/22 11:32 WBC RBC Hgb Hct MCV MCH MCHC RDW Plt Count Neut % (Auto) Lymph % (Auto) [place] % (Auto) Eos % (Auto) Baso % (Auto) Neut # (Auto) Lymph # (Auto) [place] # (Auto) Eos # (Auto) Baso # (Auto) Sodium Potassium Chloride Carbon Dioxide BUN Creatinine Estimated GFR BUN/Creatinine Ratio Glucose Calcium Magnesium Total Bilirubin AST ALT Alkaline Phosphatase Total Protein Albumin Globulin Albumin/Globulin Ratio Vancomycin Peak 19.8 L Vancomycin Trough PFSH Medical History Diverticula, bladder DVT (deep venous thrombosis) Channing-Danlos syndrome Hypertension Pulmonary embolism Surgical History No pertinent past surgical history Family History Father Myocardial infarct Mother Congestive heart failure Social History household members: spouse Smoking Status: Never smoker Assessment & Plan Assessment & Plan narrative: John Sullivan is a 71-year-old male nonsmoker with history of lymphoma and recent recurrence requiring chemotherapy, most recently 1 week ago, hypertension, hyperlipidemia and prior Rt basal CVA, HX of DVT/PE being admitted for sepsis, neutropenic fever secondary to chemotherapy for lymphoma, resulting in thro mbocytopenia and hyponatremia 1. Neutropenic fever, secondary to chemotherapy for lymphoma, acute, present on admission -oncologist Dr. Faye . U/A in ED was negative. -continue broad spectrum antibiotics, -if no fever and negative cultures at 48 hours can discharge home on levofloxacin. 2. History of right basal ganglia CVA, stable present on admission -no intervention required at this time 3. Essential hypertension, chronic, present on admission-well controlled -Continue Losartan 4. history of pulmonary embolus/DVT, chronic, present on admission -Continue Coumadi 5. Hyperlipidemia, chronic, present on admission -continue Lipitor 5. 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 I confirmed that the patient's advanced care plan is present, Code status is documented and/or surrogate decision maker is listed in the patient's medical record. Time Spent With Patient Critical Care time: I spent a total of [] minutes of critical care time on this patient's care today; this time is exclusive of procedural time. Quality VTE Deep Vein Thrombosis/Pulmonary Embolism Present on Admission: No
[2022-06-08] MEDS: WARFARIN 5 MG TABLET 2.5 MG PO (16:36)
[2022-06-08] MEDS: PIPERACILLIN/TAZO 3.375 GM in SODIUM CHLORIDE 0.9% 100 ML IV ×2 (16:37→23:21)
[2022-06-08 17:00] VITALS: BP 126/74; PULSE 79; RESP 18; TEMP 36.6; O2SAT 96
[2022-06-08 17:13] VITALS: BP 126/74
[2022-06-08] MEDS: VANCOMYCIN 1,250 MG/250 ML PIGGYBACK 250 MG IV (18:35)
[2022-06-08] MEDS: SENNOSIDES 8.6 MG TABLET 17.2 MG PO (20:14)
[2022-06-08 21:00] VITALS: BP 127/66; PULSE 101; RESP 17; TEMP 36.1; O2SAT 95
[2022-06-08 21:07] VITALS: BP 127/66; PULSE 101
[2022-06-09 04:53] VITALS: BP 119/67; PULSE 98; O2SAT 94
[2022-06-09 04:54] VITALS: BP 119/67; PULSE 98; TEMP 36.1; O2SAT 94
[2022-06-09 05:00] VITALS: TEMP 36.1
[2022-06-09 05:34] LABS: Hematocrit 37.6 % (41-53); Hemoglobin 12.8 g/dL (13.5-17.5); Mean Corpuscular Hemoglobin 31.3 PG (26-34); Mean Corpuscular Volume 92.1 fL (80-100); Platelet Count 67 X10^3/uL (150-400); Red Blood Cell Count 4.09 X10^6/uL (4.5-5.9); Red Cell Distribution Width 13.5 % (11.6-14.8)
[2022-06-09 05:38] LABS: Add Manual Diff / Slide Review YES
[2022-06-09 05:40] LABS: White Blood Cell Count 1.4 X10^3/uL (4.5-11.0)
[2022-06-09 05:41] LABS: Alanine Aminotransferase 33 IU/L (<50); Albumin 2.9 g/dL (3.5-5.0); Alkaline Phosphatase 65 U/L (38-126); Aspartate Aminotransferase 20 IU/L (17-59); BUN Creatinine Ratio 18.1 (6-22); Bilirubin Total 0.8 mg/dL (0.2-1.3); Blood Urea Nitrogen 13 mg/dL (9-20); Calcium 7.4 mg/dL (8.4-10.2); Carbon Dioxide 22 mmol/L (22-32); Chloride 104 mmol/L (98-107); Estimated Glomerular Filt Rate > 60 mL/min (>60); Globulin 2.8 g/dL (1.7-4.1); Glucose 123 mg/dL (80-110); HEMOLYSIS < 15 (0-50); Magnesium 1.8 mg/dL (1.6-2.3); Potassium 3.8 mmol/L (3.4-5.1); Sodium 131 mmol/L (137-145); Total Protein 5.7 g/dL (6.3-8.2)
[2022-06-09 06:09] LABS: Platelet Estimate Decreased on smear
[2022-06-09 06:10] LABS: Dohle Bodies 2+; RBC Morphology Normal Morphology
[2022-06-09 06:35] LABS: Neutrophils Absolute Manual 798 /uL (3000-5900); Total Cells Counted 100
[2022-06-09] MEDS: VANCOMYCIN 1,250 MG/250 ML PIGGYBACK 250 MG IV (08:01)
[2022-06-09 09:55] LABS: Clostridium Difficile Tox PCR Negative for C. diff (Negative)
[2022-06-09 10:10] VITALS: BP 108/63; PULSE 96
[2022-06-09] MEDS: LOSARTAN 50 MG TABLET 100 MG PO (10:10)
--- NOTE | 2022-06-09 10:11 | P.DS_ITS ---
History of Present Illness History of Present Illness Date Patient Seen: 06/09/22 Chief complaint: fever, neutropenic, sent by MD MOHAMUD Narrative: Per Kortney Cook, [facility]: John Sullivan is a 71-year-old male nonsmoker with history of lymphoma and recent recurrence requiring chemotherapy, most recently 1 week ago, hypertension, hyperlipidemia and prior Rt basal CVA, HX of DVT/PE presents for evaluation of acute onset fever, body aches and chills for the past 1-2 days.? He denies any nasal drainage, sore throat but has had bit of a dry hacking cough.? He denies chest pain, shortness of breath, abd pain, nausea, vomiting, diarrhea, dysuria, frequency, urgency, but does complain of difficulty urinating or emptying. He is unsure how long this has been going on, no suprapubic or CVA tenderness. Denies hematuria or melena. He denies any skin breakdown or dental issues.? He states he called his care team at the [facility] and was directed here for evaluation of neutropenic fever. Upon admit exam patient states that his body aches fever and chills have improved but still feels very weak. Upon admit patient is afebrile temp 98.5?, BP 133/71, HR 105, slightly tachypneic RR 26, O2 saturation 93% on room air. Patient has a WBC of 1.1, platelets 70, hyponatremia sodium 129, BUN of 30, glucose 124, calcium 7.8, total bili 1.4, ALT 57, glucose of 124, lipase procalcitonin and respiratory panel are all negative, chest x-ray negative for any acute cardiopulmonary processes, CTA is negative for PE. Patient admitted for sepsis neutropenic fever likely secondary to chemotherapy for lymphoma with resulting thrombocytopenia, leukopenia, and hyponatremia Discharge Providers Provider Date of admission: 06/07/22 01:00 Discharge Date: 06/09/22 Primary care physician: Belen MOHAMUD MD Consults: 06/07/22 06:34 Consult to Oncology Routine Comment: Consulting Provider: Belen MOHAMUD Reason for consultation: Neutropenic fever, severe leukopenia, thrombocytopenia Has provider been notified: No Discharge provider: Harris Roldan DO Summary Hospital Course Discharge Diagnosis: 1. Neutropenic fever, secondary to chemotherapy for lymphoma, acute, present on admission 2. History of right basal ganglia CVA, stable present on admission ? 3. Essential hypertension, chronic, present on admission-well controlled 4. history of pulmonary embolus/DVT, chronic, present on admission 5. Hyperlipidemia, chronic, present on admission 6.? 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 His workup was unremarkable and no obvious source of infection was found. Blood cultures remained negative and he remained afebrile. He was started empirically on cefepime and vancomycin, and given negative cultures he will be discharged home on oral Levaquin. He did develop mild diarrhea during stay, but C difficile was checked and was negative. He was eating and tolerating a diet at discharge, and felt much improved. I do recomme nd follow-up with his primary care provider and oncologist as previously scheduled. Time Spent with Patient Time spent: Greater than 30 minutes Exam Vital Signs (past 8 hours): - 06/09/22 05:00 06/09/22 04:53 06/09/22 04:53 Temperature 97.0 F L Pulse Rate 98 H Blood Pressure 119/67 Pulse Oximetry 94 Oxygen Delivery Method Room Air Oxygen Flow Rate 0 Narrative Exam Narrative: GENERAL:Well-developed patient, in no acute distress. HEENT: NCAT. MMM CARDIOVASCULAR: Regular rate and rhythm without murmurs, gallops, or rubs.? Port site is clean, dry and intact with no redness, dehiscence RESPIRATORY: Clear to auscultation. Breath sounds equal bilaterally. No wheezes, rales, or rhonchi.? Occasional dry hacking cough noted GASTROINTESTINAL: Abdomen soft, non-tender, nondistended. EXTREMITIES: No edema or joint tenderness. BACK: Nontender without deformity or crepitance. No flank tenderness. NEURO: AOx3. SKIN: No rash or erythema of visible areas Objective Labs Result Diagrams: 06/09/22 05:10 06/09/22 05:10 Labs: Laboratory Results - last 24 hr 06/08/22 06/09/22 06/09/22 11:32 05:10 05:10 WBC 1.4 L* D RBC 4.09 L Hgb 12.8 L Hct 37.6 L MCV 92.1 MCH 31.3 MCHC 34.0 RDW 13.5 Plt Count 67 L Neut % (Auto) Not Reportable Lymph % (Auto) Not Reportable [place] % (Auto) Not Reportable Eos % (Auto) Not Reportable Baso % (Auto) Not Reportable Lymph # (Auto) Not Reportable [place] # (Auto) Not Reportable Baso # (Auto) Not Reportable Total Counted 100 Seg Neutrophils % 51.0 Band Neutrophils % 6.0 Lymphocytes % (Manual) 29.0 Monocytes % (Manual) 12.0 H Eosinophils % (Manual) 2.0 Neutrophils # (Manual) 798 L Dohle Bodies 2+ H Platelet Estimate Decreased on smear RBC Morphology Normal morphology Sodium 131 L Potassium 3.8 Chloride 104 Carbon Dioxide 22 BUN 13 Creatinine 0.72 Estimated GFR > 60 BUN/Creatinine Ratio 18.1 Glucose 123 H Calcium 7.4 L Magnesium 1.8 Total Bilirubin 0.8 AST 20 ALT 33 Alkaline Phosphatase 65 Total Protein 5.7 L Albumin 2.9 L Globulin 2.8 Albumin/Globulin Ratio 1.0 Vancomycin Peak 19.8 L C. difficile Tox (PCR) 06/09/22 08:45 WBC RBC Hgb Hct MCV MCH MCHC RDW Plt Count Neut % (Auto) Lymph % (Auto) [place] % (Auto) Eos % (Auto) Baso % (Auto) Lymph # (Auto) [place] # (Auto) Baso # (Auto) Total Counted Seg Neutrophils % Band Neutrophils % Lymphocytes % (Manual) Monocytes % (Manual) Eosinophils % (Manual) Neutrophils # (Manual) Dohle Bodies Platelet Estimate RBC Morphology Sodium Potassium Chloride Carbon Dioxide BUN Creatinine Estimated GFR BUN/Creatinine Ratio Glucose Calcium Magnesium Total Bilirubin AST ALT Alkaline Phosphatase Total Protein Albumin Globulin Albumin/Globulin Ratio Vancomycin Peak C. difficile Tox (PCR) Negative for c. diff [facility] Medical History Diverticula, bladder DVT (deep venous thrombosis) Channing-Danlos syndrome Hypertension Pulmonary embolism Surgical History No pertinent past surgical history Family History Father Myocardial infarct Mother Congestive heart failure Social History household members: spouse Smoking Status: Never smoker Discharge Plan Discharge Plan Patient Disposition: Home Provider Discharge Comment: You were admitted to the hospital with neutropenic fever. You are being discharged with an antibiotic for an additional 5 days. Please follow up with your oncology team. You can stop stool softeners and take immodium if diarrhea persists. Discharge orders & Medications Prescriptions: New levofloxacin 750 mg tablet 750 mg PO DAILY 5 Days Qty: 5 0RF Continued warfarin 2.5 mg tablet See Rx Instructions .ROUTE .COMPLEX Rx Instructions: current orders= 5mg PO Daily and recheck on losartan 100 mg tablet 50 mg PO DAILY Follow up/Referrals: Belen MOHAMUD MD [Primary Care Provider] - Diet/Activity/Treatments Diet: Diet as Tolerated Activity: As tolerated Discharge Data Primary Care Provider: Belen MOHAMUD Quality VTE Deep Vein Thrombosis/Pulmonary Embolism Present on Admission: No
[2022-06-09] MEDS: PIPERACILLIN/TAZO 3.375 GM in SODIUM CHLORIDE 0.9% 100 ML IV (11:23)
--- NOTE | 2022-06-09 11:36 | CM.DPC ---
DCP Discharge Home Per MD, pt medically stable to d/c home today after CDiff results return as pt developed diarrhea the past couple days but this will not be a barrier to d/c just determine what medications needed at d/c. Spouse to provide transport at d/c to home later today. Plan: Patient to d/c home today via spouse POV and no further SW needs at this time. SENDY Sánchez
--- NOTE | 2022-06-09 12:04 | PC.NURSE ---
Addendum entered by Ji Ruffin R.N. 06/09/22 14:19: Pt discharged to care of . Both alert and oriented and understanding of discharge instructions. IV's d/c'd intact. Pt dressed and escorted to car via w/c by Ethan LÓPEZ. Original Note: Pt conversant, appropriate offers no overt c/o issues. Questioning when he is going home. Waiting on c-diff test results. Sample sent this morning.
== END 2022-06-09 14:05 | disposition home or self-care (01) | DRG 809 ==
LOC: ED 23:31 → AC 06-07 01:05 → ICU 06-07 01:13 → AC 06-07 11:06
PROVIDERS: Internal Medicine; Student in an Organized Health Care Education/Training Program; Admitting Provider Nurse Practitioner Family; Emergency Provider Emergency Medicine; PCP Internal Medicine Hematology & Oncology; Referring Provider Internal Medicine Hematology & Oncology; Visit Provider Nurse Practitioner Family
DX: D70.1 Agranulocytosis secondary to cancer chemotherapy (principal); E87.1 Hypo-osmolality and hyponatremia; Q79.60 Ehlers-Danlos syndrome, unspecified; C85.90 Non-Hodgkin lymphoma, unspecified, unspecified site; D69.59 Other secondary thrombocytopenia; I10 Essential (primary) hypertension; E78.5 Hyperlipidemia, unspecified; Z86.711 Personal history of pulmonary embolism; Z20.822 Contact with and (suspected) exposure to COVID-19; Z79.01 Long term (current) use of anticoagulants; Z86.718 Personal history of other venous thrombosis and embolism
CPT/HCPCS: 36415; 71045; 71275; 80053; 80202; 81001; 81003; 83605; 83690; 83735; 83880; 84145; 85007; 85025; 85027; 85610; 86140; 87040; 87086; 87493; 87633; 87635; 87797; 93005; 96365; 96367; 99284; 99285; C9803; J0696; J2543; Q9967

== ENCOUNTER → 2022-06-28 14:39 | Outpatient (CLI) | payer OTHER, SELFPAY ==
[2022-06-07 01:28] VITALS: BMI 31.2
[2022-06-28 15:32] LABS: Hematocrit 39.7 % (41-53); Hemoglobin 13.6 g/dL (13.5-17.5); Mean Corpuscular HGB Conc 34.2 % (30-36); Mean Corpuscular Hemoglobin 31.6 PG (26-34); Mean Corpuscular Volume 92.2 fL (80-100); Platelet Count 175 X10^3/uL (150-400); Red Cell Distribution Width 13.9 % (11.6-14.8)
[2022-06-28 15:39] LABS: Add Manual Diff / Slide Review YES; White Blood Cell Count 0.5 X10^3/uL (4.5-11.0)
[2022-06-28 17:53] LABS: Neutrophils Absolute Manual 45 /uL (3000-5900); RBC Morphology Norm; Total Cells Counted 100
== END ==
PROVIDERS: PCP Internal Medicine Hematology & Oncology; Referring Provider Internal Medicine Hematology & Oncology; Visit Provider Internal Medicine Hematology & Oncology
DX: C83.31 Diffuse large B-cell lymphoma, lymph nodes of head, face, and neck (principal)
CPT/HCPCS: 36415; 85007; 85025

== ENCOUNTER → 2022-07-05 13:48 | Outpatient (CLI) | payer OTHER, SELFPAY ==
[2022-06-07 01:28] VITALS: BMI 31.2
[2022-07-05 14:32] LABS: Add Manual Diff / Slide Review NO; Basophils Absolute Auto 0 /uL (0-100); Basophils Percent Auto 0.3 % (0-2); Eosinophils Absolute Auto 0 /uL (0-450); Eosinophils Percent Auto 0.2 % (2-4); Hematocrit 39.3 % (41-53); Hemoglobin 13.4 g/dL (13.5-17.5); Lymphocytes Absolute Auto 600 /uL (1100-4500); Lymphocytes Percent Auto 8.4 % (25-40); Mean Corpuscular HGB Conc 34.2 % (30-36); Mean Corpuscular Volume 93.5 fL (80-100); Monocytes Absolute Auto 800 /uL (0-900); Monocytes Percent Auto 10.6 % (3-14); Neutrophils Absolute Auto 5800 /uL (1500-7000); Neutrophils Percent Auto 80.5 % (50-75); Platelet Count 206 X10^3/uL (150-400); Red Cell Distribution Width 14.3 % (11.6-14.8); White Blood Cell Count 7.2 X10^3/uL (4.5-11.0)
== END ==
PROVIDERS: PCP Internal Medicine Hematology & Oncology; Referring Provider Internal Medicine Hematology & Oncology; Visit Provider Internal Medicine Hematology & Oncology
DX: C83.31 Diffuse large B-cell lymphoma, lymph nodes of head, face, and neck (principal)
CPT/HCPCS: 36415; 85025

== ENCOUNTER → 2022-07-21 13:15 | Outpatient (CLI) | payer OTHER, SELFPAY ==
[2022-06-07 01:28] VITALS: BMI 31.2
[2022-07-21 13:56] LABS: Add Manual Diff / Slide Review YES; Hematocrit 39.7 % (41-53); Hemoglobin 13.8 g/dL (13.5-17.5); Mean Corpuscular HGB Conc 34.6 % (30-36); Mean Corpuscular Hemoglobin 32.5 PG (26-34); Mean Corpuscular Volume 93.7 fL (80-100); Platelet Count 177 X10^3/uL (150-400); Red Blood Cell Count 4.24 X10^6/uL (4.5-5.9); Red Cell Distribution Width 15.4 % (11.6-14.8); White Blood Cell Count 8.5 X10^3/uL (4.5-11.0)
[2022-07-21 14:19] LABS: Neutrophils Absolute Manual 7480 /uL (3000-5900); RBC Morphology Normal Morphology; Total Cells Counted 100
== END ==
PROVIDERS: PCP Internal Medicine; Referring Provider Internal Medicine Hematology & Oncology; Visit Provider Internal Medicine Hematology & Oncology
DX: C83.31 Diffuse large B-cell lymphoma, lymph nodes of head, face, and neck (principal)
CPT/HCPCS: 36415; 85007; 85025